=== PATIENT | male | born 1940 | race Caucasian/White ===

== ENCOUNTER 2018-05-12 18:53 | Emergency (ER) | payer BC, MEDICARE ==
--- NOTE | 2018-05-12 19:09 | EDM.PDOC ---
ED HPI GENERAL MEDICAL PROBLEM - General Chief Complaint: General Stated Complaint: DIZZY Time Seen by Provider: 05/12/18 19:03 - History of Present Illness INITIAL COMMENTS - FREE TEXT/NARRATIVE: 78-year-old male presents emergency room with lightheadedness and weakness. The patient has along go of it, he's recently had bouts of colitis pneumonia had several hospitalizations. He has a little lightheaded at times and a little unsteady on his feet. He has not had any episodes of localized weakness confusion or speech difficulties. He hasn't had any recent fevers or chills no nausea vomiting. On his last colonoscopy during his last hospitalization he had a few polypectomies and seems to be doing a little bit better after this, no more abdominal discomfort. He has not had any breathing difficulty shortness of breath or chest discomfort. Family is most concerned that he is not as steady on his feet as he used to be he has fallen a few times recently and he likes to spend time in his basement. He has been traveling quite a bit going back and forth with his also being ill and it does not sound like he is had the opportunity to get caught up on his rest. - Related Data Allergies Allergy/AdvReac Type Severity Reaction Status Date / Time Penicillins Allergy Cannot Verified 05/12/18 19:04 Remember Home Meds: Home Meds Aspirin 81 mg PO DAILY 05/12/18 [History] Budesonide [Entocort EC] 3 mg PO DAILY 05/12/18 [History] Calcium Carbonate/Vitamin D3 [Caltrate-600 with Vit D Tab] 1 each PO DAILY 05/12 [History] Cholecalciferol (Vitamin D3) [Vitamin D3] 1,000 unit PO DAILY 05/12/18 [History] Clorazepate Dipotassium [Tranxene T-Tab] 7.5 mg PO TID PRN 05/12/18 [History] Felodipine [Felodipine ER] 10 mg PO DAILY 05/12/18 [History] Gluc 2KCl/Chondr/[place] Hy/Hy Ac [Glucosamine & Chondroitin Cap] 1 each PO DAILY 05/12/18 [History] Levothyroxine 175 mcg PO ACBRK 05/12/18 [History] Lisinopril [Prinivil] 10 mg PO DAILY 05/12/18 [History] Omeprazole 40 mg PO DAILY 05/12/18 [History] PARoxetine [Paxil] 60 mg PO DAILY 05/12/18 [History] ED ROS GENERAL - Review of Systems Review Of Systems: See Below Constitutional: Reports: No Symptoms HEENT: Reports: No Symptoms Respiratory: Reports: No Symptoms Cardiovascular: Reports: No Symptoms Endocrine: Reports: No Symptoms GI/Abdominal: Reports: No Symptoms : Reports: No Symptoms Skin: Reports: No Symptoms Neurological: Reports: No Symptoms Psychiatric: Reports: No Symptoms Hematologic/Lymphatic: Reports: No Symptoms ED EXAM, GENERAL - Physical Exam Exam: See Below Exam Limited By: No Limitations General Appearance: Alert, No Apparent Distress Eye Exam: Bilateral Eye: Normal Inspection Ears: Normal External Exam, Normal Canal, Hearing Grossly Normal, Normal TMs Nose: Normal Inspection, Normal Mucosa, No Blood Throat/Mouth: Normal Inspection, Normal Lips, Normal Teeth, Normal Gums, Normal Oropharynx, Normal Voice, No Airway Compromise Head: Atraumatic, Normocephalic Neck: Normal Inspection, Supple, Non-Tender, Full Range of Motion Respiratory/Chest: No Respiratory Distress, Lungs Clear, Normal Breath Sounds, No Accessory Muscle Use, Chest Non-Tender Cardiovascular: Normal Peripheral Pulses GI/Abdominal: Normal Bowel Sounds, Soft, Non-Tender, No Organomegaly, No Distention, No Abnormal Bruit, No Mass Back Exam: Normal Inspection, Full Range of Motion, Other (Distracted straight leg raises are normal) Extremities: Normal Inspection, Normal Range of Motion, Non-Tender, Normal Capillary Refill, No Pedal Edema Neurological: Alert, Oriented, Normal Cognition Psychiatric: Normal Affect, Normal Mood Skin Exam: Warm, Dry, Intact Lymphatic: No Adenopathy EKG INTERPRETATION EKG Date: 05/12/18 Rhythm: NSR [place]: LAD-Left [place] Deviation P-Wave: Present ST-T: Normal QT: Normal Comparison: NA - No Prior EKG EKG Interpretation Comments: Leftward axis borderline Q's inferiorly abnormal EKG no acute changes Course - Vital Signs Last Recorded V/S: Last Vital Signs Temp 37.3 C 05/12/18 18:59 Pulse 98 05/12/18 18:59 Resp 22 H 05/12/18 18:59 BP 125/70 05/12/18 18:59 Pulse Ox 94 L 05/12/18 18:59 - Orders/Labs/Meds Orders: Active Orders 24 hr Category Date Time Status EKG Documentation Completion [RC] STAT Care 05/12/18 19:26 Active Chest 2V [CR] Stat Exams 05/12/18 19:26 Taken Labs: Laboratory Tests 05/12/18 05/12/18 05/12/18 Range/Units 20:04 20:04 20:04 WBC 6.29 (4.23-9.07) K/mm3 RBC 3.10 L (4.63-6.08) M/mm3 Hgb 9.6 L (13.7-17.5) gm/L Hct 30.6 L (40.1-51.0) % MCV 98.7 H (79.0-92.2) fl MCH 31.0 (25.7-32.2) pg MCHC 31.4 L (32.2-35.5) g/dl RDW Std Deviation 52.9 H (35.1-43.9) fL Plt Count 110 L (163-337) K/mm3 MPV 10.9 (9.4-12.3) fl Neutrophils % (Manual) 62 H (40-60) % Band Neutrophils % 0 (0-10) % Lymphocytes % (Manual) 30 (20-40) % Atypical Lymphs % 0 % Monocytes % (Manual) 7 (2-10) % Eosinophils % (Manual) 0 L (0.8-7.0) % Basophils % (Manual) 1 (0.2-1.2) Platelet Estimate Adequate Plt Morphology Comment Normal Hypochromasia 1+ slight Anisocytosis 1+ slight RBC Morph Comment Not Reportable Sodium 136 (136-145) mEq/L Potassium 3.9 (3.5-5.1) mEq/L Chloride 102 (98-107) mEq/L Carbon Dioxide 25 (21-32) mEq/L Anion Gap 12.9 (5-15) BUN 20 H (7-18) mg/dL Creatinine 1.2 (0.7-1.3) mg/dL Est Cr Clr Drug Dosing 51.55 mL/min Estimated GFR (MDRD) 59 (>60) mL/min BUN/Creatinine Ratio 16.7 (14-18) Glucose 90 (83-115) mg/dL Calcium 8.2 L (8.5-10.1) mg/dL Total Bilirubin 0.9 (0.2-1.0) mg/dL AST 32 (15-37) U/L ALT 38 (16-63) U/L Alkaline Phosphatase 90 (46-116) U/L Troponin I < 0.017 (0.00-0.056) ng/mL Total Protein 6.8 (6.4-8.2) g/dl Albumin 2.9 L (3.4-5.0) g/dl Globulin 3.9 gm/dL Albumin/Globulin Ratio 0.7 L (1-2) TSH 3rd Generation 3.128 (0.358-3.74) uIU/mL Urine Color (Yellow) Urine Appearance (Clear) Urine pH (5.0-8.0) Ur Specific [place] (1.005-1.030) Urine Protein (Negative) Urine Glucose (UA) (Negative) Urine Ketones (Negative) Urine Occult Blood (Negative) Urine Nitrite (Negative) Urine Bilirubin (Negative) Urine Urobilinogen (0.2-1.0) Ur Leukocyte Esterase (Negative) Urine RBC (0-5) /hpf Urine WBC (0-5) /hpf Ur Epithelial Cells (0-5) /hpf Urine Bacteria (FEW) /hpf Urine Mucus (FEW) /hpf /07/22 Range/Units 20:20 WBC (4.23-9.07) K/mm3 RBC (4.63-6.08) M/mm3 Hgb (13.7-17.5) gm/L Hct (40.1-51.0) % MCV (79.0-92.2) fl MCH (25.7-32.2) pg MCHC (32.2-35.5) g/dl RDW Std Deviation (35.1-43.9) fL Plt Count (163-337) K/mm3 MPV (9.4-12.3) fl Neutrophils % (Manual) (40-60) % Band Neutrophils % (0-10) % Lymphocytes % (Manual) (20-40) % Atypical Lymphs % % Monocytes % (Manual) (2-10) % Eosinophils % (Manual) (0.8-7.0) % Basophils % (Manual) (0.2-1.2) Platelet Estimate Plt Morphology Comment Hypochromasia Anisocytosis RBC Morph Comment Sodium (136-145) mEq/L Potassium (3.5-5.1) mEq/L Chloride (98-107) mEq/L Carbon Dioxide (21-32) mEq/L Anion Gap (5-15) BUN (7-18) mg/dL Creatinine (0.7-1.3) mg/dL Est Cr Clr Drug Dosing mL/min Estimated GFR (MDRD) (>60) mL/min BUN/Creatinine Ratio (14-18) Glucose (83-115) mg/dL Calcium (8.5-10.1) mg/dL Total Bilirubin (0.2-1.0) mg/dL AST (15-37) U/L ALT (16-63) U/L Alkaline Phosphatase (46-116) U/L Troponin I (0.00-0.056) ng/mL Total Protein (6.4-8.2) g/dl Albumin (3.4-5.0) g/dl Globulin gm/dL Albumin/Globulin Ratio (1-2) TSH 3rd Generation (0.358-3.74) uIU/mL Urine Color Yellow (Yellow) Urine Appearance Clear (Clear) Urine pH 7.0 (5.0-8.0) Ur Specific [place] 1.020 (1.005-1.030) Urine Protein 1+ H (Negative) Urine Glucose (UA) Negative (Negative) Urine Ketones Negative (Negative) Urine Occult Blood Negative (Negative) Urine Nitrite Negative (Negative) Urine Bilirubin Negative (Negative) Urine Urobilinogen 4.0 H (0.2-1.0) Ur Leukocyte Esterase Negative (Negative) Urine RBC Not seen (0-5) /hpf Urine WBC 0-5 (0-5) /hpf Ur Epithelial Cells 0-5 (0-5) /hpf Urine Bacteria Rare (FEW) /hpf Urine Mucus Not seen (FEW) /hpf - Re-Assessments/Exams Free Text/Narrative Re-Assessment/Exam: 05/12/18 23:10 The cause of his dizziness is a little unclear he has a significant anemia certainly not to the point that requires transfusion with further discussion he uses Tranxene on a when necessary basis sometimes fairly heavily this is a medication with a very long half-life and can accumulate quite rapidly and over the long-term in his system if used on a regular basis I believe this medication is frowned upon by the beers criteria and could be contributing to his system at his age he can accumulate it at a much faster pace then somebody younger could. He will follow-up with his regular provider discuss continued use the Tranxene and his anemia that needs to be addressed Departure - Departure Time of Disposition: 23:12 Disposition: Home, Self-Care 01 Clinical Impression: Dizziness, nonspecific, Anemia, senior living prescription benzodiazepine use - Discharge Information Referrals: Ricki Johnson MD [Primary Care Provider] - Forms: ED Department Discharge Additional Instructions: Return to the emergency room with any questions problems worsening symptoms. Follow-up with your regular doctor as soon as you can discuss workup for the anemia and discuss treatment for anxiety and potential harm if using the Tranxene. - My Orders Last 24 Hours: My Active Orders 05/12/18 19:26 EKG Documentation Completion [RC] STAT Chest 2V [CR] Stat - Assessment/Plan Last 24 Hours: My Active Orders 05/12/18 19:26 EKG Documentation Completion [RC] STAT Chest 2V [CR] Stat
--- NOTE | 2018-05-13 08:18 | CR ---
Chest: Two views of the chest were obtained. Comparison: No prior chest x-ray. Heart has a slight left ventricular configuration. Mild tortuosity of the thoracic aorta is seen. Lungs are clear without acute parenchymal change. Degenerative spurring is noted within the spine with scattered disc space narrowing. Several right-sided rib fractures are seen showing callus. Impression: 1. Incidental findings. Nothing acute is seen. Diagnostic code #2
== END 2018-05-12 23:20 | disposition home or self-care (01) ==
LOC: JD.ED 18:53
DX: R42 Dizziness and giddiness (principal); F19.90 Other psychoactive substance use, unspecified, uncomplicated; D64.9 Anemia, unspecified; Z88.0 Allergy status to penicillin; Z79.82 Long term (current) use of aspirin; Z79.899 Other long term (current) drug therapy
CPT/HCPCS: 36415; 71046; 71046-26; 80053; 81001; 84443; 84484; 85007; 85027; 93005; 99284-25

== ENCOUNTER 2018-12-12 16:01 | Emergency (ER) | payer MEDICARE, OTHER ==
--- NOTE | 2018-12-12 16:33 | EDM.PDOC ---
ED HPI GENERAL MEDICAL PROBLEM - General Chief Complaint: Back Pain or Injury Stated Complaint: SEVERE BACK PAIN Time Seen by Provider: 12/12/18 16:33 Source of Information: Reports: Patient, Family (spouse) History Limitations: Reports: No Limitations - History of Present Illness INITIAL COMMENTS - FREE TEXT/NARRATIVE: 78-year-old male brought to the ED by his after being discharged from [facility] earlier this morning. Patient slipped and fell at home over a week ago and was seen initially at [facility] and then was transferred to [facility] for care. Patient has remained in the hospital for over a week due to a compression fracture in his lower lumbar spine. His pain management is his chief complaint. He was advised to take Tylenol and a lidocaine patch was applied over the sore area in his back for transport home. Patient is in so much pain at this time that he cannot walk so he can't look after himself and his is not able to care for him at home. Patient has chronic thrombocytopenia and anemia and hemoglobin apparently was low at 7.7 yesterday and he did receive 1 unit of blood. Otherwise he was going to be discharged home yesterday morning but the weather was too bad to allow discharge. It's unclear why he has not had an MRI of his back or operating of a kyphoplasty. Apparently he did hit his head when he fell initially and CT head was done in the emergency room in [place] and was negative for intracranial bleed. The and the patient are both severely frustrated by the fact that they could not get an MRI done and pursue kyphoplasty to help with his severe pain. He has no radicular pain in either extremity. He can get on and off the toilet with assistance only. All function has been normal without constipation. He does have urinary frequency with nocturia 2 due to enlarged prostate gland. He denies any nausea but the pain is 10 out of 10 at present. States the lidocaine patch has not helped at all. Patient was retrieved from their vehicle by nursing staff with a wheelchair as he is unable to walk due to pain. Onset: Sudden Onset Date: 12/03/18 (Patient was feeling weak and dizzy on the day that he fell. He had a fainting type spell and did hit his head) Duration: Day(s):, Constant, Getting Worse Location: Reports: Back (Diffuse severe low back pain due to compression fracture secondary to a fall 9 days ago) Quality: Reports: Ache Severity: Severe (10 out of 10) Improves with: Reports: Rest Worsens with: Reports: Movement (Even trying to rollover bed by himself is almost impossible) Context: Reports: Trauma (Slipped on the ice and fell almost on his left side and back.). Denies: Activity, Exercise, Lifting, Sick Contact Associated Symptoms: Reports: Loss of Appetite, Malaise, Weakness. 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, Other (see below) (Lidocaine patch applied to his lower back today) Lower Back Pain Score (Numeric/FACES): 9 - Related Data Allergies Allergy/AdvReac Type Severity Reaction Status Date / Time Penicillins Allergy Cannot Verified 12/12/18 18:19 Remember Home Meds: Home Meds Budesonide [Entocort EC] 9 mg PO DAILY 05/12/18 [History] Calcium Carbonate/Vitamin D3 [Caltrate-600 with Vit D Tab] 1 each PO DAILY 05/12 [History] Cholecalciferol (Vitamin D3) [Vitamin D3] 1,000 unit PO DAILY 05/12/18 [History] Clorazepate Dipotassium [Tranxene T-Tab] 7.5 mg PO TID PRN 05/12/18 [History] Felodipine [Felodipine ER] 10 mg PO DAILY 05/12/18 [History] Gluc 2KCl/Chondr/Kelby Hy/Hy Ac [Glucosamine & Chondroitin Cap] 1 each PO DAILY 05/12/18 [History] Levothyroxine 175 mcg PO ACBRK 05/12/18 [History] Omeprazole 20 mg PO DAILY 05/12/18 [History] Ferrous Sulfate 325 mg PO DAILY 12/12/18 [History] Lidocaine 5% [Lidoderm 5%] 1 patch TOP Q24H 12/12/18 [History] Tamsulosin [Flomax] 0.4 mg PO BEDTIME 12/12/18 [History] Vitamin B6-pyridOXINE 100 mg PO DAILY 02/08/19 [History] Past Medical History HEENT History: Reports: Allergic Rhinitis, Hard of Hearing, Impaired Vision Cardiovascular History: Reports: Hypertension, [place], SOB on Exertion, Other (See Below) (Carotid artery stenosis.) Respiratory History: Reports: COPD, Sleep Apnea (Does wear CPAP at nighttime.), Other (See Below) (Has restrictively young lung disease component.) Gastrointestinal History: Reports: GERD Other Gastrointestinal History: inconclusive for crohns disease Genitourinary History: Reports: Other (See Below) Other Genitourinary History: prostatalgia Musculoskeletal History: Reports: Arthritis, Osteoarthritis (Knees hips lower back and neck.), Other (See Below) Other Musculoskeletal History: compressed lower disc. 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 Not clear whether this is gout or not. 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 Has had then inferior once and required numerous units of packed cells. 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 He's been labeled as having chronic systemic inflammatory reaction. The cause of bone marrow suppression is usually connective tissue disorder or chronic inflammatory process versus is infectious etiology that is chronic such as Shaq-Wiley virus HIV, hepatitis B etc. Medications are also on the list of potential culprits. Dictated cause chronic thrombocytopenia), Other (See Below) Other Hematologic History: low hemoglobin and platelets--has been investigated by Dr. Spence nut grader in [place] and in fact has had a bone marrow biopsy with no positive findings. Therefore the suggestion is whether or not he has a chronic infectious process causing bone marrow suppression versus medication causing bone marrow suppression. Many of his medications were recently discontinued in the believe that one of them may be causing bone marrow suppression and chronic thrombocytopenia and anemia. Oncologic (Cancer) History: Reports: Other (See Below) (Basal cell skin cancer left ear. Squamous cell carcinoma removed left forearm) - Past Surgical History Cardiovascular Surgical History: Reports: Carotid Endarterectomy, Coronary Artery Stent, Percutaneous Transluminal Angioplasty, Other (See Below) ( Previous pericardiocentesis with removal of 350 mils of blood.) GI Surgical History: Reports: Colonoscopy (With polypectomies. With biopsies.) Musculoskeletal Surgical History: Reports: Other (See Below) (Acquired multiple facial fracture repairs after accident.) Social & Family History - Family History Family Medical History: Noncontributory - Tobacco Use Smoking Status *Q: Former Smoker Used Tobacco, but Quit: Yes Month/Year Tobacco Last Used: 40 yrs - Caffeine Use Caffeine Use: Reports: Coffee, Soda - Recreational Drug Use Recreational Drug Use: No - Living Situation & Occupation Living situation: Reports: Occupation: Retired ED ROS GENERAL - Review of Systems Review Of Systems: See Below Constitutional: Reports: Malaise, Weakness, Fatigue, Decreased Appetite, Weight Loss. Denies: Fever, Chills HEENT: Reports: Glasses Respiratory: Reports: Shortness of Breath (On exertion). Denies: Wheezing, Pleuritic Chest Pain, Cough, Sputum, Hemoptysis Cardiovascular: Reports: Blood Pressure Problem, Dyspnea on Exertion. Denies: Chest Pain, Claudication (Mildly elevated but lisinopril was recently discontinued.), Edema, Lightheadedness, Orthopnea, Palpitations Endocrine: Reports: Fatigue GI/Abdominal: Reports: Decreased Appetite. Denies: Abdominal Pain, Constipation , Diarrhea, Nausea, Vomiting : Reports: Frequency, Other (Has enlarged prostate.) Musculoskeletal: Reports: Back Pain ( Trigger usually 2-3 times nightly severe low back pain since fall 9 days ago with confirmed compression fracture unsure which level. Records are being obtained ) Skin: Reports: No Symptoms Neurological: Reports: No Symptoms Psychiatric: Reports: No Symptoms Hematologic/Lymphatic: Reports: Anemia, Easy Bleeding, Easy Bruising, Other Immunologic: Reports: No Symptoms ED EXAM,LOWER BACK PAIN/INJURY - Physical Exam Exam: See Below Exam Limited By: No Limitations General Appearance: Alert, Moderate Distress (He is in obvious pain or distress. He is mildly palate in color.), Other (Resting heart rate is 126/m either due to pain and/or volume depletion. O2 sats 91% on room air. BP is mildly elevated at 149/69.) Eye Exam: Bilateral Eye: PERRL, Other (Mild bilateral pallor appreciated.) Throat/Mouth: Normal Inspection, Normal Lips, Normal Teeth, Normal Oropharynx, Other Head: Atraumatic (Tongue is moist), Normocephalic Neck: Normal Inspection, Supple, Non-Tender, Full Range of Motion. No: Lymphadenopathy (L), Lymphadenopathy (R) Respiratory/Chest: Respiratory Distress, Decreased Breath Sounds, Rales (Mild tachypnea at rest 21/m. Few fine rales appreciated at both lung bases.). No: Lungs Clear Cardiovascular: Normal Peripheral Pulses, No Gallop, No Murmur, No Rub, Tachycardia (Resting tachycardia of 1 29/m). No: No Edema GI/Abdominal: Normal Bowel Sounds, Non-Tender, No Organomegaly, No Abnormal Bruit, No Mass, Pelvis Stable, Other (He has a large scar compatible with open cholecystectomy and appendectomy done at the same time on the right hemiabdomen) Back Exam: Vertebral Tenderness (Severe pain coming from his lower back appears to be lumbar to lower lumbar 3 level but is difficult to ascertain which level is the Right.), Other Extremities: Normal Inspection, Normal Range of Motion, Non-Tender, Pedal Edema Neurological: Alert (He has 1+ pitting edema both lower extremities at the ankles and dorsal feet), Normal Dorsiflexion, CN II-XII Intact, No Motor/ Sensory Deficits, Oriented x 3. No: Normal Gait DTR - Lower Extremities: 1+: Knee (R), Knee (L), Ankle (R), Ankle (L) Psychiatric: Other Skin Exam: Warm, Dry (In a great deal of pain), Intact, Normal Color, Pallor ( Mild pallor) EKG INTERPRETATION EKG Date: 12/12/18 Time: 17:08 Rhythm: Other Rate (Beats/Min): 127 [place]: Normal P-Wave: Present QRS: Other (There are Q waves in V3 to V6 compatible with an old anterior lateral myocardial infarction. There are Q waves in II, III, and F aVF compatible with an old inferior wall myocardial infarction.) ST-T: Normal QT: Normal EKG Interpretation Comments: Abnormal ECG Course - Vital Signs Last Recorded V/S: Last Vital Signs Temp 37.9 C 12/12/18 19:20 Pulse 129 H 12/12/18 16:17 Resp 21 H 12/12/18 16:17 BP 149/69 H 12/12/18 16:17 Pulse Ox 92 L 12/12/18 16:17 - Orders/Labs/Meds Orders: Active Orders 24 hr Category Date Time Status EKG Documentation Completion [RC] STAT Care 12/12/18 16:51 Active Chest 1V Frontal [CR] Stat Exams 12/12/18 17:02 Taken CULTURE BLOOD [BC] Stat Lab 12/12/18 19:37 Received CULTURE BLOOD [BC] Stat Lab 12/12/18 19:48 Received PATIENT RETYPE [BBK] Routine Lab 12/12/18 19:27 Ordered Sodium Chloride 0.9% [Normal Saline] 1,000 ml Med 12/12/18 17:00 Active IV ASDIRECTED Blood Culture x2 Reflex Set [OM.PC] Stat Oth 12/12/18 19:15 Ordered Medication Orders Sodium Chloride (Normal Saline) 1,000 mls @ 200 mls/hr IV ASDIRECTED DINA Last Admin: 12/12/18 17:20 Dose: 200 mls/hr Labs: Laboratory Tests 12/12/18 12/12/18 12/12/18 Range/Units 17:15 17:15 17:15 WBC 9.36 H (4.23-9.07) K/mm3 RBC 3.00 L (4.63-6.08) M/mm3 Hgb 9.5 L (13.7-17.5) gm/L Hct 30.5 L (40.1-51.0) % MCV 101.7 H (79.0-92.2) fl MCH 31.7 (25.7-32.2) pg MCHC 31.1 L (32.2-35.5) g/dl RDW Std Deviation 60.1 H (35.1-43.9) fL Plt Count 79 L (163-337) K/mm3 MPV 11.7 (9.4-12.3) fl Neutrophils % (Manual) 85 H (40-60) % Band Neutrophils % 2 (0-10) % Lymphocytes % (Manual) 10 L (20-40) % Atypical Lymphs % 0 % Monocytes % (Manual) 3 (2-10) % Eosinophils % (Manual) 0 L (0.8-7.0) % Basophils % (Manual) 0 L (0.2-1.2) Platelet Estimate Decreased Plt Morphology Comment See note Anisocytosis 1+ slight Macrocytosis 1+ slight Ovalocytes 1+ slight RBC Morph Comment Not Reportable ESR (0-15) mm/hr PT 12.1 (9.5-12.1) SECONDS INR 1.11 APTT 35 H (24-31) SECONDS Sodium 139 (136-145) mEq/L Potassium 3.8 (3.5-5.1) mEq/L Chloride 104 (98-107) mEq/L Carbon Dioxide 25 (21-32) mEq/L Anion Gap 13.8 (5-15) BUN 24 H (7-18) mg/dL Creatinine 1.3 (0.7-1.3) mg/dL Est Cr Clr Drug Dosing 46.04 mL/min Estimated GFR (MDRD) 54 (>60) mL/min BUN/Creatinine Ratio 18.5 H (14-18) Glucose 103 (83-115) mg/dL Calcium 9.1 (8.5-10.1) mg/dL Magnesium 1.9 (1.8-2.4) mg/dl Total Bilirubin 0.7 (0.2-1.0) mg/dL AST 50 H (15-37) U/L ALT 56 (16-63) U/L Alkaline Phosphatase 104 (46-116) U/L C-Reactive Protein 11.8 H* (<1.0) mg/dL NT-Pro-B Natriuret Pep (0-450) pg/mL Total Protein 7.3 (6.4-8.2) g/dl Albumin 2.9 L (3.4-5.0) g/dl Globulin 4.4 gm/dL Albumin/Globulin Ratio 0.7 L (1-2) Urine Color (Yellow) Urine Appearance (Clear) Urine pH (5.0-8.0) Ur Specific Duncan (1.005-1.030) Urine Protein (Negative) Urine Glucose (UA) (Negative) Urine Ketones (Negative) Urine Occult Blood (Negative) Urine Nitrite (Negative) Urine Bilirubin (Negative) Urine Urobilinogen (0.2-1.0) Ur Leukocyte Esterase (Negative) Urine RBC (0-5) /hpf Urine WBC (0-5) /hpf Ur Epithelial Cells (0-5) /hpf Urine Bacteria (FEW) /hpf Urine Mucus (FEW) /hpf Blood Type Gel Antibody Screen 12/12/18 12/12/18 12/12/18 Range/Units 17:15 17:15 17:15 WBC (4.23-9.07) K/mm3 RBC (4.63-6.08) M/mm3 Hgb (13.7-17.5) gm/L Hct (40.1-51.0) % MCV (79.0-92.2) fl MCH (25.7-32.2) pg MCHC (32.2-35.5) g/dl RDW Std Deviation (35.1-43.9) fL Plt Count (163-337) K/mm3 MPV (9.4-12.3) fl Neutrophils % (Manual) (40-60) % Band Neutrophils % (0-10) % Lymphocytes % (Manual) (20-40) % Atypical Lymphs % % Monocytes % (Manual) (2-10) % Eosinophils % (Manual) (0.8-7.0) % Basophils % (Manual) (0.2-1.2) Platelet Estimate Plt Morphology Comment Anisocytosis Macrocytosis Ovalocytes RBC Morph Comment ESR 104 H (0-15) mm/hr PT (9.5-12.1) SECONDS INR APTT (24-31) SECONDS Sodium (136-145) mEq/L Potassium (3.5-5.1) mEq/L Chloride (98-107) mEq/L Carbon Dioxide (21-32) mEq/L Anion Gap (5-15) BUN (7-18) mg/dL Creatinine (0.7-1.3) mg/dL Est Cr Clr Drug Dosing mL/min Estimated GFR (MDRD) (>60) mL/min BUN/Creatinine Ratio (14-18) Glucose (83-115) mg/dL Calcium (8.5-10.1) mg/dL Magnesium (1.8-2.4) mg/dl Total Bilirubin (0.2-1.0) mg/dL AST (15-37) U/L ALT (16-63) U/L Alkaline Phosphatase (46-116) U/L C-Reactive Protein (<1.0) mg/dL NT-Pro-B Natriuret Pep 302 (0-450) pg/mL Total Protein (6.4-8.2) g/dl Albumin (3.4-5.0) g/dl Globulin gm/dL Albumin/Globulin Ratio (1-2) Urine Color (Yellow) Urine Appearance (Clear) Urine pH (5.0-8.0) Ur Specific Duncan (1.005-1.030) Urine Protein (Negative) Urine Glucose (UA) (Negative) Urine Ketones (Negative) Urine Occult Blood (Negative) Urine Nitrite (Negative) Urine Bilirubin (Negative) Urine Urobilinogen (0.2-1.0) Ur Leukocyte Esterase (Negative) Urine RBC (0-5) /hpf Urine WBC (0-5) /hpf Ur Epithelial Cells (0-5) /hpf Urine Bacteria (FEW) /hpf Urine Mucus (FEW) /hpf Blood Type A POSITIVE Gel Antibody Screen Negative 12/12/18 Range/Units 18:30 WBC (4.23-9.07) K/mm3 RBC (4.63-6.08) M/mm3 Hgb (13.7-17.5) gm/L Hct (40.1-51.0) % MCV (79.0-92.2) fl MCH (25.7-32.2) pg MCHC (32.2-35.5) g/dl RDW Std Deviation (35.1-43.9) fL Plt Count (163-337) K/mm3 MPV (9.4-12.3) fl Neutrophils % (Manual) (40-60) % Band Neutrophils % (0-10) % Lymphocytes % (Manual) (20-40) % Atypical Lymphs % % Monocytes % (Manual) (2-10) % Eosinophils % (Manual) (0.8-7.0) % Basophils % (Manual) (0.2-1.2) Platelet Estimate Plt Morphology Comment Anisocytosis Macrocytosis Ovalocytes RBC Morph Comment ESR (0-15) mm/hr PT (9.5-12.1) SECONDS INR APTT (24-31) SECONDS Sodium (136-145) mEq/L Potassium (3.5-5.1) mEq/L Chloride (98-107) mEq/L Carbon Dioxide (21-32) mEq/L Anion Gap (5-15) BUN (7-18) mg/dL Creatinine (0.7-1.3) mg/dL Est Cr Clr Drug Dosing mL/min Estimated GFR (MDRD) (>60) mL/min BUN/Creatinine Ratio (14-18) Glucose (83-115) mg/dL Calcium (8.5-10.1) mg/dL Magnesium (1.8-2.4) mg/dl Total Bilirubin (0.2-1.0) mg/dL AST (15-37) U/L ALT (16-63) U/L Alkaline Phosphatase (46-116) U/L C-Reactive Protein (<1.0) mg/dL NT-Pro-B Natriuret Pep (0-450) pg/mL Total Protein (6.4-8.2) g/dl Albumin (3.4-5.0) g/dl Globulin gm/dL Albumin/Globulin Ratio (1-2) Urine Color Yellow (Yellow) Urine Appearance Clear (Clear) Urine pH 7.0 (5.0-8.0) Ur Specific Duncan 1.015 (1.005-1.030) Urine Protein 1+ H (Negative) Urine Glucose (UA) Negative (Negative) Urine Ketones Negative (Negative) Urine Occult Blood 1+ H (Negative) Urine Nitrite Negative (Negative) Urine Bilirubin Negative (Negative) Urine Urobilinogen 0.2 (0.2-1.0) Ur Leukocyte Esterase Negative (Negative) Urine RBC 0-5 (0-5) /hpf Urine WBC 0-5 (0-5) /hpf Ur Epithelial Cells 0-5 (0-5) /hpf Urine Bacteria Occasional (FEW) /hpf Urine Mucus Not seen (FEW) /hpf Blood Type Gel Antibody Screen Meds: Medications Generic Name Dose Route Start Last Admin Trade Name Freq PRN Reason Stop Dose Admin Sodium Chloride 1,000 mls @ 200 mls/hr 12/12/18 17:00 12/12/18 17:20 Normal Saline IV 200 mls/hr ASDIRECTED DINA Administration Discontinued Medications Generic Name Dose Route Start Last Admin Trade Name Freq PRN Reason Stop Dose Admin Acetaminophen 975 mg 12/12/18 19:15 12/12/18 19:20 Tylenol PO 12/12/18 19:16 975 mg NOW ONE Administration Hydromorphone HCl 1 mg 12/12/18 16:50 12/12/18 17:22 Dilaudid IVPUSH 12/12/18 16:51 1 mg ONETIME ONE Administration Ondansetron HCl 4 mg 12/12/18 16:51 12/12/18 17:20 Zofran IVPUSH 12/12/18 16:52 4 mg ONETIME ONE Administration - Radiology Interpretation Free Text/Narrative:: 78-year-old male presents the ED at the request of his . There were discharged from [facility] this afternoon from [place] where they have been for the last week. Y slipped and fell at home outside of [place] 9 days ago landing hard on his left side and injuring his lower back by history is a suffered a severe compression fracture. Been for the most part bedridden with suboptimal pain control. He was given a lidocaine patch over his lower back and tailbone told to take Tylenol for pain. Patient's pain is currently 10 out of 10 with had to go and get him out of the vehicle as he is unable to walk on his own even with the interval walker. 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 He has had a bone marrow biopsy which was reportedly normal. 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 No infectious or chronic infectious disease process has ever been identified to be causing his thrombocytopenia and chronic anemia. He did receive a unit of blood yesterday at the request of his because his hemoglobin was 7.7 on examination he is pallid he is in great deal of pain. Written ecchymoses all extremities. Last platelet count was around 64,000. Apparently his hemoglobin was 7.7 yesterday and he did receive a unit of packed cells. He is here primarily for pain management and to be admitted to the hospital since his can't care for him at home and he certainly can't care for himself in any fashion or form. It's unclear are not Y he has not received an MRI of his lower back to identify the level of injury and whether or not he would benefit from a kyphoplasty. I'm not sure if the surgery is felt to be too high risk due to his low platelets and anemia. We will pursue notes from [facility] toll- free shed further light on his current problems. In the meantime an IV will be started and he will receive normal saline at 150 mils per hour. Given Dilaudid 1 mg IV with Zofran 4 mg IV for pain and nausea relief. Routine labs will be collected in one view chest x-ray and ECG to be done. - Re-Assessments/Exams Free Text/Narrative Re-Assessment/Exam: 12/12/18 18:29 White count is 9.36 with 85% neutrophils and 2% bands. Hemoglobin is 9.5 with a hematocrit of 30.5. MCV is elevated at 101.7. Platelet count is 79,000. The slide shows 1+ anisocytosis cytosis and 1+ macrocytosis and 1+ ovalocytes. PT is 12.1 with an INR of 1.11. PTT is 35 sodium 139 with potassium of 3.8. Chloride is 104 bicarbonate 25.. Anion gap is 13.8 with a BUN of 24. Creatinine is 1.3. GFR is 54. BUN/creatinine ratio is 18.5 minimally elevated glucose 103. Calcium 9.1. Magnesium 1.9. Bilirubin is 0.7. AST is minimally elevated at 50 ALT is 56. Alk phosphatase is 104. C-reactive protein is elevated at 11.8. BNP is 302. Total protein is 7.3 with an albumin fraction of only 2.9. Chest x-ray done portably reveals a somewhat bulbous heart that might be just mildly enlarged. There is no pulmonary infiltrates and costophrenic angles are clear. 12/12/18 18:44 after looking through all the notes that have arrived from [facility] well over 200 pages on page 200 identified that they did do an x-ray of his lumbar spine is suggested a compression fracture of the superior endplate of lumbar 1. Intake we could not be clarified. A CT of the abdomen and pelvis and chest was performed to look for occult malignancy found. This is on page 207. CT identified a compression fracture of lumbar one but felt that it was old versus new. His pain however is well localized to this area suggesting that he has a new fracture. MRI will be the only way to define for sure the level of fracture and its antiquity. Patient has had multiple investigations from a connective tissue disorder point of view as well as infectious gastroenterology point of view to try to identify a chronic infective process that would be responsible for his bone marrow suppression and none was found. Therefore one has to look very carefully at his medications as a potential cause. He obviously has a chronic iron deficiency anemia which may well be from bowel absorption. However this does not explain the chronic thrombocytopenia. Thrombocytopenia may be a barrier to having a compression fracture kyphoplasty performed in the future. I have ordered a CT of his lumbar spine to help clarify the level of injury at this time. Apparently they are looking and Tranxene as a potential medication that may be causing bone marrow suppression. Apparently he's been on this medication for 25 years. 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 Therefore the potential cause of his bone marrow abnormalities are multiple. With this sedimentation rate of 104 it strongly suggests there is a chronic inflammatory/infectious process causing bone marrow suppression 12/12/18 19:16 I did speak with the family once again. On my examination the patient he has spiked a fever he is a very warm to palpation I will have the nurses recheck his temperature. I've ordered blood cultures 2 and Tylenol 975 mg by mouth for fever relief. He has passed his urine and apparently samples been sent for analysis he did not have any catheterization while he was in [place]. I spoken with on-call hospice Dr. Comer and she will visit with him in the room and identify expectations and the limited abilities of our hospital. I did order a influenza screen on this patient. 12/12/18 20:15: After discussion with the family decision made to send him back to [place] unfortunately. Family adamantly refuses going back to [facility] for care. I therefore did discuss care with 1 call nurse at [facility] in [place] and Dr. Ruelas--senior interaction designer hospitalist who was gracious enough to accept care of this patient. 2 major problems are an acute fracture of his lumbar 1 vertebra causing terrible uncontrolled pain. #2 problem is acute onset of febrile illness of unclear origin. Urinalysis here is clear and chest x-ray is normal. Third problem is chronic bone marrow suppression with chronic thrombocytopenia and anemia. The cause of this remains elusive. The will stay in [facility] and plan on traveling to [place] tomorrow. Completely worn out and she needs new clothing and has to go down to the [facility] to obtain close for both herself and her . Daughter is here at this time to also help. Departure - Departure Time of Disposition: 20:36 Disposition: DC/Tfer to Acute Hospital 02 Condition: Poor Clinical Impression: Acute febrile illness, Fever of unknown origin, Chronic iron deficiency anemia , Chronic idiopathic thrombocytopenia Compression fracture of first lumbar vertebra Qualifiers: Encounter type: initial encounter Fracture type: closed Qualified Code(s): S32.010A - Wedge compression fracture of first lumbar vertebra, initial encounter for closed fracture - Discharge Information *PRESCRIPTION DRUG MONITORING PROGRAM REVIEWED*: Not Applicable *COPY OF PRESCRIPTION DRUG MONITORING REPORT IN PATIENT GERMAINE: Not Applicable Referrals: Ricki Johnson MD [Primary Care Provider] - Forms: ED Department Discharge - My Orders Last 24 Hours: My Active Orders 12/12/18 16:51 EKG Documentation Completion [RC] STAT 12/12/18 17:00 Sodium Chloride 0.9% [Normal Saline] 1,000 ml IV ASDIRECTED 12/12/18 17:02 Chest 1V Frontal [CR] Stat 12/12/18 19:15 Blood Culture x2 Reflex Set [OM.PC] Stat 12/12/18 19:27 PATIENT RETYPE [BBK] Routine 12/12/18 19:37 CULTURE BLOOD [BC] Stat 12/12/18 19:48 CULTURE BLOOD [BC] Stat - Assessment/Plan Last 24 Hours: My Active Orders 12/12/18 16:51 EKG Documentation Completion [RC] STAT 12/12/18 17:00 Sodium Chloride 0.9% [Normal Saline] 1,000 ml IV ASDIRECTED 12/12/18 17:02 Chest 1V Frontal [CR] Stat 12/12/18 19:15 Blood Culture x2 Reflex Set [OM.PC] Stat 12/12/18 19:27 PATIENT RETYPE [BBK] Routine 12/12/18 19:37 CULTURE BLOOD [BC] Stat 12/12/18 19:48 CULTURE BLOOD [BC] Stat
[2018-12-12] MEDS ORDERED: HYDROmorphone 1 MG/ML Syringe IVPUSH ONE ×2 (16:50→20:28)
[2018-12-12] MEDS ORDERED: Ondansetron 4 MG/2 ML SDV IVPUSH ONE (16:51)
[2018-12-12] MEDS ORDERED: Sodium Chloride 0.9% 1,000 ML IV SCH (17:00)
[2018-12-12] MEDS ORDERED: Acetaminophen 325 MG Tab PO ONE (19:15)
--- NOTE | 2018-12-12 19:21 | CT ---
CT lumbar spine Technique: Multiple axial sections were obtained from the top of T12 inferiorly through the L5-S1 disc. Reconstructed sagittal and coronal images were reviewed. Comparison: No prior lumbar spine imaging is available. Findings: T11-T12: Posterior disc is preserved. No central canal stenosis or neural foraminal stenosis is seen. T12-L1: Vacuum disc phenomena is seen. Posterior disc space narrowing is seen. Posterior disc maintains a concave margin. Moderate degenerative apophyseal change is noted. No central canal stenosis or neural foraminal stenosis is seen. Minimal endplate concavity is noted of L1 with what appears to be an acute fracture line of the anterior and superior endplate. L1-L2: Posterior disc space narrowing is seen. Slight circumferential disc bulge is noted. Posterior disc maintains a concave margin. No central canal stenosis is seen. Neural foramina are patent. Mild degenerative apophyseal change is seen. Schmorl node deformity is seen within the inferior endplate of L1. L2-L3: Severe disc space narrowing is noted with vacuum disc phenomena. Mild circumferential disc bulge is seen. Posterior disc maintains a mostly planar margin. Mild central canal stenosis is noted. Neural foramina are patent where the nerve roots exit. Mild degenerative apophyseal change is seen. L3-L4: Mild disc space narrowing is seen. Circumferential disc bulge is noted. Mild degenerative apophyseal change is noted. Mild central canal stenosis is seen. Neural foramina are patent where the nerve roots exit. L4-L5: Mild disc space narrowing is seen. Slight circumferential disc bulge is noted. Moderate degenerative apophyseal change is seen. Minimal central canal stenosis is noted. Neural foramina are patent where the nerve roots exit. L5-S1: Mild diffuse posterior disc bulge is seen. Neural foramina appear patent where the nerve roots exit. No central canal stenosis is seen. Fragmentation is noted of the apophyseal joint of L5 on the right side believed to be old and degenerative. Atherosclerotic change is noted within the nondilated abdominal aorta. Sacroiliac joints show slight degenerative change. Bony structures are osteopenic. Impression: 1. Slight endplate concavity of L1 is seen superiorly. This is believed to be acute as there is small fracture line noted involving the anterior and superior endplate. 2. Degenerative change as noted above. Mild areas of central canal stenosis are seen. 3. No other possible acute abnormality is appreciated. Diagnostic code #3
--- NOTE | 2018-12-13 11:34 | CR ---
Chest: Portable view of the chest was obtained. Comparison: Previous chest x-ray of 05/12/18. Heart is slightly enlarged. Tortuous thoracic aorta seen. Lungs are clear. Bony structures are grossly intact. Impression: 1. Slightly enlarged heart. 2. Nothing acute is appreciated on portable chest x-ray. Diagnostic code #2
== END 2018-12-12 20:45 ==
LOC: JD.ED 16:01 → SUPCPDRO 16:01 → JD.ED 20:45
DX: S32.010A Wedge compression fracture of first lumbar vertebra, initial encounter for closed fracture (principal); D69.3 Immune thrombocytopenic purpura; R50.9 Fever, unspecified; D50.0 Iron deficiency anemia secondary to blood loss (chronic); M54.5 Low back pain; J44.9 Chronic obstructive pulmonary disease, unspecified; I10 Essential (primary) hypertension; Z88.0 Allergy status to penicillin; Z79.899 Other long term (current) drug therapy; Z87.891 Personal history of nicotine dependence; W01.0XXA Fall on same level from slipping, tripping and stumbling without subsequent striking against object, initial encounter
CPT/HCPCS: 36415; 71045; 72131; 80053; 81001; 83735; 83880; 85007; 85027; 85610; 85652; 85730; 86140; 86850; 86900; 86901; 87040; 87804; 93005; 96361; 96374; 96375; 96376; 99285; A9270; J1170; J2405; J7040; 93010

== ENCOUNTER 2019-07-23 12:47 | Emergency (ER) | payer MEDICARE, OTHER ==
--- NOTE | 2019-07-23 14:24 | EDM.PDOC ---
ED HPI GENERAL MEDICAL PROBLEM - General Chief Complaint: Chest Pain Stated Complaint: CHEST ACHE Time Seen by Provider: 07/23/19 14:22 Source of Information: Reports: Patient History Limitations: Reports: No Limitations - History of Present Illness INITIAL COMMENTS - FREE TEXT/NARRATIVE: 79-year-old male attends the ED in a complement of his . Complaining of multitude of complaints mostly in the epigastrium and lower retrosternal chest pain. Pain in the right side of his neck rating and along the supraspinatus muscle/tendon distribution right shoulder. Seen through the ED yesterday and had a normal ECG and chest x-ray. Today he is more concerned about reoccurrence of a pericardial effusion as he had to have this drained once in the past by Dr. Lopez. He's quite apprehensive. 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 He is receiving Aranesp tablets. Diet is fair has lost some weight since I've seen him last. Eyes cough or sputum production. Feels mildly short of breath. Pain is described as sharp stabbing and some burning component. It seems just gotten worse over the last 5 days since he's been placed on doxycycline 100 mg twice a day for potential infection and amputated distal right third finger. He has a history of dyspepsia and heartburn and hiatal hernia. He also has a history of problems with his heart and COPD. They came seeking a echocardiogram to rule out fluid around his heart. Advised that we cannot perform this test in the ED and if I did it through the the ultrasound department I would get an answer back for a week. However CT of his chest would prove whether or not he had any since significant going on in his lungs or his heart. Onset: Gradual Onset Date: 07/20/19 (Has been having lower retrosternal epigastric pain for the last 3-4 days gradually seems to be getting worse. Of note this coincides with the start of doxycycline 100 mg twice a day 5 days ago for suspect soft tissue infection with MRSA in his amputated distal phalanx of his right third finger.) Duration: Hour(s):, Waxing/Waning Location: Reports: Neck (Pain right lateral neck that radiates along the distribution of the supraspinatus muscle and tendon towards his right shoulder but not down his arm.), Chest (Epigastrium), Abdomen Quality: Reports: Ache, Burning, Sharp, Stabbing Severity: Moderate Improves with: Reports: None Worsens with: Reports: Other (Perhaps worse after taking doxycycline medication. ) Context: Denies: Activity, Exercise, Lifting, Sick Contact, Trauma, Other Associated Symptoms: Reports: Chest Pain (Nonproductive cough), Cough, Loss of Appetite, Shortness of Breath, Weakness. 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 (see below) (No new medications other than doxepin 100 mg twice a day started 5 days ago for suspect infection of the soft tissues of recently amputated distal phalanx of right third finger.) Left Chest Pain Score (Numeric/FACES): 5 - Related Data Allergies Allergy/AdvReac Type Severity Reaction Status Date / Time Penicillins Allergy Cannot Verified 07/23/19 13:15 Remember Home Meds: Home Meds Calcium Carbonate/Vitamin D3 [Caltrate-600 with Vit D Tab] 1 each PO DAILY 05/12 [History] Cholecalciferol (Vitamin D3) [Vitamin D3] 1,000 unit PO DAILY 05/12/18 [History] Clorazepate Dipotassium [Tranxene T-Tab] 7.5 mg PO TID PRN 05/12/18 [History] Felodipine [Felodipine ER] 10 mg PO DAILY 05/12/18 [History] Gluc 2KCl/Chondr/Kelby Hy/Hy Ac [Glucosamine & Chondroitin Cap] 1 each PO DAILY 05/12/18 [History] Levothyroxine 175 mcg PO ACBRK 05/12/18 [History] Omeprazole 20 mg PO BID 05/12/18 [History] Tamsulosin [Flomax] 0.4 mg PO BEDTIME 12/12/18 [History] Vitamin B6-pyridOXINE 100 mg PO DAILY 12/12/18 [History] Doxycycline [Vibramycin] 100 mg PO BID #20 cap 05/23/19 [Rx] Aspirin [Ecotrin EC] 1 tab PO DAILY 07/22/19 [History] Cyanocobalamin (Vitamin B-12) [Vitamin B-12] 1 tab PO DAILY 07/22/19 [History] Darbepoetin Carl [Aranesp] 300 mcg IJ ASDIRECTED 07/22/19 [History] Lactobac Cmb #3/Fos/Pantethine [Probiotic & Acidophilus] 1 cap PO DAILY [History] Lisinopril [Prinivil] 10 mg PO BID 07/22/19 [History] Oxybutynin [Oxybutynin ER] 1 tab PO QPM 07/22/19 [History] PARoxetine HCl [Paxil] 60 mg PO DAILY 07/22/19 [History] Past Medical History HEENT History: Reports: Allergic Rhinitis, Hard of Hearing, Impaired Vision Cardiovascular History: Reports: Hypertension, IA, SOB on Exertion, Other (See Below) Respiratory History: Reports: COPD, Sleep Apnea, Other (See Below) Gastrointestinal History: Reports: GERD Other Gastrointestinal History: inconclusive for crohns disease Genitourinary History: Reports: Other (See Below) Other Genitourinary History: prostatalgia Musculoskeletal History: Reports: Arthritis, Osteoarthritis, Other (See Below) Other Musculoskeletal History: compressed lower disc. 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 Not clear whether this is gout or not. Neurological History: Reports: CVA Psychiatric History: Reports: Anxiety, Depression Endocrine/Metabolic History: Reports: Hypothyroidism Hematologic History: Reports: Anemia, Iron Deficiency, Other (See Below) Other Hematologic History: low hemoglobin and platelets--has been investigated by Dr. Spence technician [employer] systems in [place] and in fact has had a bone marrow biopsy with no positive findings. Therefore the suggestion is whether or not he has a chronic infectious process causing bone marrow suppression versus medication causing bone marrow suppression. Many of his medications were recently discontinued in the believe that one of them may be causing bone marrow suppression and chronic thrombocytopenia and anemia. Oncologic (Cancer) History: Reports: Other (See Below) Other Oncologic History: CMLL - Past Surgical History Cardiovascular Surgical History: Reports: Carotid Endarterectomy, Coronary Artery Stent, Percutaneous Transluminal Angioplasty, Other (See Below) GI Surgical History: Reports: Colonoscopy Musculoskeletal Surgical History: Reports: Other (See Below) Social & Family History - Family History Family Medical History: Noncontributory - Tobacco Use Smoking Status *Q: Never Smoker - Caffeine Use Caffeine Use: Reports: Coffee, Soda - Recreational Drug Use Recreational Drug Use: No - Living Situation & Occupation Living situation: Reports: Occupation: Retired ED ROS GENERAL - Review of Systems Review Of Systems: See Below Constitutional: Reports: Malaise, Weakness, Fatigue, Decreased Appetite, Weight Loss, Other (Some days he can hardly eat at all after taking chemotherapy.). Denies: Fever, Chills HEENT: Reports: Glasses, Hearing Loss Respiratory: Reports: Shortness of Breath, Cough. Denies: Wheezing, Pleuritic Chest Pain, Sputum, Hemoptysis (Nonproductive cough.) Cardiovascular: Reports: Chest Pain, Dyspnea on Exertion, Edema, Lightheadedness (Sometimes his legs swell a bit.). Denies: Blood Pressure Problem, Claudication (Mostly retrosternal lower and epigastrium. No radiation through to his back.), Orthopnea, Palpitations Endocrine: Reports: Fatigue GI/Abdominal: Reports: Abdominal Pain (Epigastric abdominal pain with burning component worse the last 3 or 4 days since starting doxycycline 100 mg twice a day for suspect soft tissue infection in his amputated distal right third finger.), Decreased Appetite. Denies: Difficulty Swallowing, Distension, Flatus , Hematemesis, Hematochezia, Vomiting : Reports: Frequency, Other (Benign prostatic hypertrophy. Nocturia usually 3 ) Musculoskeletal: Reports: Neck Pain, Back Pain, Joint Pain (Increased right- sided neck pain rating to his right shoulder due to loss arthritis of his neck. Knees hips lower back hips at times.) Skin: Reports: Bruising (Bruises fairly easily.) Neurological: Reports: Dizziness, Weakness (Occasional dizzy spells when he stands up too fast. Extremities.) Psychiatric: Reports: Anxiety Hematologic/Lymphatic: Reports: No Symptoms Immunologic: Reports: No Symptoms ED EXAM, GENERAL - Physical Exam Exam: See Below Exam Limited By: No Limitations General Appearance: Alert, Anxious, Mild Distress, Other (Vital signs show temperature 37.2 with a pulse of 97 and sinus. Respiratory distress 20. BP is 1 3469 pulse ox 89% on room air.) Eye Exam: Bilateral Eye: Normal Inspection (Perhaps very mild blepharal pallor.) Throat/Mouth: Normal Inspection (Tongue is mildly dry and coated.), Normal Lips , Normal Oropharynx, Other Head: Atraumatic, Normocephalic Neck: Normal Inspection, Full Range of Motion, Limited Range of Motion, Tender Lateral (Tender laterally particularly in the right side over the facet joints of the cervical spine. Very minimal paraspinal muscle spasm bilaterally. Decreased range of motion with loss of 5-10 of flexion 5 of extension 5 of lateral rotation and flexion.) Respiratory/Chest: Lungs Clear, Normal Breath Sounds, Chest Non-Tender, Decreased Breath Sounds, Other (Mild tachypnea at rest.) Cardiovascular: Regular Rate, Rhythm, No Edema, No Gallop, No Murmur, No Rub. No: Normal Peripheral Pulses Peripheral Pulses: 1+: Posterior Tibial (L), Posterior Tibial (R), Dorsalis Pedis (L), Dorsalis Pedis (R) GI/Abdominal: Normal Bowel Sounds, Soft, Non-Tender, No Organomegaly, No Abnormal Bruit, No Mass, Pelvis Stable, Tender (Very tender in the pit of his stomach and epigastrium on deep palpation.) Back Exam: Normal Inspection, Decreased Range of Motion, Paraspinal Tenderness ( Mild paraspinal muscle spasm and tenderness adjacent to the lumbar spine.), Vertebral Tenderness. No: CVA Tenderness (L), CVA Tenderness (R) Extremities: Normal Inspection, Normal Range of Motion, Non-Tender, No Pedal Edema, Other (Examination of the amputation of the distal phalanx of his right third finger shows the wound is healing very well with no signs of infection at this time. Is no erythema and is cool to touch.) Neurological: Alert, Oriented, CN II-XII Intact, Normal Cognition Psychiatric: Anxious Skin Exam: Warm, Dry, Intact, Normal Color, No Rash Course - Vital Signs Last Recorded V/S: Last Vital Signs Temp 37.2 C 07/23/19 13:11 Pulse 97 07/23/19 13:11 Resp 20 07/23/19 13:11 BP 134/69 07/23/19 13:11 Pulse Ox 89 L 07/23/19 13:11 - Orders/Labs/Meds Orders: Active Orders 24 hr Category Date Time Status EKG Documentation Completion [RC] STAT Care 07/23/19 14:22 Active Labs: Laboratory Tests 07/23/19 07/23/19 07/23/19 Range/Units 14:45 14:45 14:45 WBC 6.45 (4.23-9.07) K/mm3 RBC 3.26 L (4.63-6.08) M/mm3 Hgb 10.1 L (13.7-17.5) gm/dl Hct 33.6 L (40.1-51.0) % MCV 103.1 H (79.0-92.2) fl MCH 31.0 (25.7-32.2) pg MCHC 30.1 L (32.2-35.5) g/dl RDW Std Deviation 60.4 H (35.1-43.9) fL Plt Count 53 L (163-337) K/mm3 MPV 12.7 H (9.4-12.3) fl Neut % (Auto) 37.4 (34.0-67.9) % Lymph % (Auto) 18.4 L (21.8-53.1) % [place]range % (Auto) 42.8 H (5.3-12.2) % Eos % (Auto) 0.3 L (0.8-7.0) Baso % (Auto) 0.2 (0.1-1.2) % Neut # (Auto) 2.41 (1.78-5.38) K/mm3 Lymph # (Auto) 1.19 L (1.32-3.57) K/mm3 [place]range # (Auto) 2.76 H (0.30-0.82) K/mm3 Eos # (Auto) 0.02 L (0.04-0.54) K/mm3 Baso # (Auto) 0.01 (0.01-0.08) K/mm3 Manual Slide Review Abnormal smear PT 11.4 (9.7-12.0) SECONDS INR 1.05 Sodium 142 (136-145) mEq/L Potassium 4.1 (3.5-5.1) mEq/L Chloride 105 (98-107) mEq/L Carbon Dioxide 27 (21-32) mEq/L Anion Gap 14.1 (5-15) BUN 22 H (7-18) mg/dL Creatinine 1.4 H (0.7-1.3) mg/dL Est Cr Clr Drug Dosing 42.07 mL/min Estimated GFR (MDRD) 49 (>60) mL/min BUN/Creatinine Ratio 15.7 (14-18) Glucose 85 (83-115) mg/dL Calcium 9.2 (8.5-10.1) mg/dL Magnesium (1.8-2.4) mg/dl Total Bilirubin 1.0 (0.2-1.0) mg/dL AST 21 (15-37) U/L ALT 18 (16-63) U/L Alkaline Phosphatase 112 (46-116) U/L Troponin I < 0.017 (0.00-0.056) ng/mL C-Reactive Protein (<1.0) mg/dL NT-Pro-B Natriuret Pep (0-450) pg/mL Total Protein 8.1 (6.4-8.2) g/dl Albumin 3.6 (3.4-5.0) g/dl Globulin 4.5 gm/dL Albumin/Globulin Ratio 0.8 L (1-2) 07/23/19 07/23/19 Range/Units 14:45 14:45 WBC (4.23-9.07) K/mm3 RBC (4.63-6.08) M/mm3 Hgb (13.7-17.5) gm/dl Hct (40.1-51.0) % MCV (79.0-92.2) fl MCH (25.7-32.2) pg MCHC (32.2-35.5) g/dl RDW Std Deviation (35.1-43.9) fL Plt Count (163-337) K/mm3 MPV (9.4-12.3) fl Neut % (Auto) (34.0-67.9) % Lymph % (Auto) (21.8-53.1) % Lagrange % (Auto) (5.3-12.2) % Eos % (Auto) (0.8-7.0) Baso % (Auto) (0.1-1.2) % Neut # (Auto) (1.78-5.38) K/mm3 Lymph # (Auto) (1.32-3.57) K/mm3 [place] # (Auto) (0.30-0.82) K/mm3 Eos # (Auto) (0.04-0.54) K/mm3 Baso # (Auto) (0.01-0.08) K/mm3 Manual Slide Review PT (9.7-12.0) SECONDS INR Sodium (136-145) mEq/L Potassium (3.5-5.1) mEq/L Chloride (98-107) mEq/L Carbon Dioxide (21-32) mEq/L Anion Gap (5-15) BUN (7-18) mg/dL Creatinine (0.7-1.3) mg/dL Est Cr Clr Drug Dosing mL/min Estimated GFR (MDRD) (>60) mL/min BUN/Creatinine Ratio (14-18) Glucose (83-115) mg/dL Calcium (8.5-10.1) mg/dL Magnesium 2.0 (1.8-2.4) mg/dl Total Bilirubin (0.2-1.0) mg/dL AST (15-37) U/L ALT (16-63) U/L Alkaline Phosphatase (46-116) U/L Troponin I (0.00-0.056) ng/mL C-Reactive Protein 3.3 H* (<1.0) mg/dL NT-Pro-B Natriuret Pep 214 (0-450) pg/mL Total Protein (6.4-8.2) g/dl Albumin (3.4-5.0) g/dl Globulin gm/dL Albumin/Globulin Ratio (1-2) Meds: Medications Discontinued Medications Generic Name Dose Route Start Last Admin Trade Name Freq PRN Reason Stop Dose Admin Iopamidol 100 ml 07/23/19 15:28 07/23/19 16:00 Isovue-300 (61%) IVPUSH 07/23/19 15:29 100 ml ONETIME ONE Administration Sodium Chloride 10 ml 07/23/19 15:28 07/23/19 16:00 Saline Flush FLUSH 10 ml ONETIME PRN Administration KEEP VEIN OPEN - Radiology Interpretation Free Text/Narrative:: 79-year-old male attends the ED for reevaluation of epigastric pain and lower retrosternal chest pressure discomfort. The history suggests this is worse since he started doxazosin 100 mg twice daily for suspect soft tissue infection with MRSA in the recently amputated proximal phalanx of his right third finger. He was seen in the ED yesterday had a normal chest x-ray and was reassured he refused lab work at that time is he just had a bunch lab work at the clinic. He has chronic myelogenous leukemia and is on Aranesp for chemotherapy. He has underlying heart condition knees had various aches and pains. Is right upper neck and into his right shoulder. Examination suggests pain is in the epigastrium not so much in his chest. He is very concerned that he has a recurrence of fluid around his heart. Seeking an echocardiogram of his heart. Do this but I don't have the time. If we did it in the department which they will not do today at any rate will be sent off to [facility] to be over read take a week to get results. For decision made to give him a GI cocktail see if this settled down his epigastric pain. I suspect is due to irritation from the doxycycline. I will perform a CT of his chest with IV contrast to rule out any hemopericardium or pericardial effusion and/or any other lung problem. Routine labs will also be carried out to rule out heart related illness. We will have to await his dad need before proceeding with CT chest with contrast. ECG reveals no evidence of any acute - Re-Assessments/Exams Free Text/Narrative Re-Assessment/Exam: 07/23/19 16:43 Labs reveal a normal white count at 6.45. The differential reveals 37.4% neutrophils on the auto differential and 42.38% monocytes. He has a known CML. Hemoglobin is 10.1 with hematocrit of 33.6. MCV slightly elevated 103.1. Platelet count 53,000. He has a known chronic thrombocytopenia. The slide shows monocytosis. PT is 11.4 with an INR 1.05 mildly elevated. Sodium 142 with a potassium of 4.1. Chloride is 105 with a bicarbonate 27. Anion gap is 14.1. B1 is 22 with a creatinine of 1.4. GFR is 49. Glucose 85 with a calcium of 9.2. Magnesium is normal at 2.0. Liver function is normal. Troponin I is less than 0.017. C-reactive protein is 3.3. BNP is 214. Total protein 8.1 albumin fraction 3.6. 07/23/19 16:43 CT scan of the chest has been completed with contrast. No prior CT`s for comparison purposes. Aorta shows diffuse atherosclerotic calcification with no signs of aneurysm. There is mild coronary artery calcification. No pericardial effusion or pericardial wall thickening is seen. Spleen is incompletely included on this exam but is suggested to be somewhat enlarged. Patient has known CML. Patient has a small hiatal hernia. Single surgical clip is seen at the gastroesophageal junction. Very slight parenchymal densities noted within the inferior left upper lung near the major fissure which is most likely due to slight atelectasis. Lungs otherwise show no acute parenchymal changes. No pleural effusions are identified no pneumothorax is seen. Setting show scattered degenerative spurring within the spine with several chronic appearing mild compression deformities. No acute osseous abnormalities are identified. He has a lot of pain in his lower cervical spine which again is going to be due to degenerative arthritis. There is some radicular pain into his right superior shoulder in the distribution of the supraspinatus tendon clinically he has mild rotator cuff disease as well. Be on meloxicam and still has a prescription at home for this I think this is the safest thing for him to return to. 0.5 mg twice daily. Vitamin drink plenty of fluids today to help get rid of the contrast media that we gave him today to minimize any effect on his kidney function. Departure - Departure Time of Disposition: 16:51 Disposition: Home, Self-Care 01 Condition: Fair Clinical Impression: Compression fracture of body of thoracic vertebra, Dyspepsia, Atypical chest pain Degenerative arthritis of cervical spine Qualifiers: Spinal osteoarthritis complication: with radiculopathy Qualified Code(s): M47.22 - Other spondylosis with radiculopathy, cervical region Degenerative arthritis of thoracic spine Qualifiers: Spinal osteoarthritis complication: without myelopathy or radiculopathy Qualified Code(s): M47.814 - Spondylosis without myelopathy or radiculopathy, thoracic region Instructions: Spinal Compression Fracture Referrals: Ed Mcgill MD [Primary Care Provider] - Forms: ED Department Discharge Additional Instructions: Evaluation the emergency room today in regards to persistent pain in the pit of the stomach and lower retrosternal chest. Concern is whether or not she ever recurrence of fluid buildup around her heart. 4 CT scan of your chest was performed with contrast and it does not reveal any fluid buildup around the heart. There is no fluid in the lungs. There is mild focal atelectasis which means lung compression from not taking good deep breaths in the lower lung knapp only. No sign of cancer in the lungs. There is mild emphysematous change. Surgical clip appreciated at the gastroesophageal junction at site of previous surgery on hiatal hernia. Suspect you're getting pain in the pit of your stomach from hiatal hernia and esophagitis. I suspect doxycycline tablet that you're currently taking for infection in your right amputated fingertip may be irritating this area. Suggest taking it for only another 2 days and then discontinuing it. The CT does show advanced degenerative arthritis at multiple levels in your cervical spine or neck and throat are low thoracic spine with multiple compression fractures. Therefore a lot of your current pain syndrome in your neck right upper shoulder is due to arthritis in the neck and back. I would suggest starting back on meloxicam 7.5 mg once daily or twice daily as needed to control inflammation in the bones. Your kidney function will have to be monitored along the way but to have lab tests done very frequently due to your chronic myelocytic leukemia. I would suggest having some Gaviscon antacid on hand and taking a tablet or a tablespoon full at bedtime to help with your stomach and prevent reflux of acid into the lower food pipe during the night when you're sleeping to help with a stomach problem. Continue omeprazole 20 mg once daily. Follow-up with personal physician if any further problems occur. Of note the lab tests were done and showed no changes compared to yesterday as far as your hematology goes. The chemistry also proved to be within normal limits with no signs of any heart related illness. - My Orders Last 24 Hours: My Active Orders 07/23/19 14:22 EKG Documentation Completion [RC] STAT - Assessment/Plan Last 24 Hours: My Active Orders 07/23/19 14:22 EKG Documentation Completion [RC] STAT
[2019-07-23] MEDS ORDERED: Sodium Chloride 0.9% 10 ML Syringe FLUSH PRN (15:28)
[2019-07-23] MEDS ORDERED: Iopamidol 612 MG/ML 100 ML Bottle IVPUSH ONE (15:28)
--- NOTE | 2019-07-23 16:20 | CT ---
CT chest Technique: Multiple axial sections were obtained from above the lung apices inferiorly through the lung bases. Intravenous contrast was utilized. Comparison: No prior chest CT is available, previous chest x-ray performed one day earlier on 07/22/19. Findings: Aorta shows atherosclerotic calcification with no aneurysm. Mild coronary artery calcification is seen. No pericardial effusion or pericardial thickening is seen. Spleen is incompletely included on this exam but is suggested to be somewhat enlarged. Small hiatal hernia is seen. Single surgical clip is seen at the gastroesophageal junction. Very slight parenchymal density is noted within the inferior left upper lung near the major fissure which is most likely due to slight atelectasis. Lungs otherwise show no acute parenchymal change. No pleural effusions are seen. No pneumothorax is seen. Bone window settings shows scattered degenerative spurring within the spine with several chronic appearing mild compression deformities. No acute osseous abnormality is identified. Impression: 1. No pericardial effusion or pericardial thickening is seen. 2. Spleen is incompletely included on the study but is suggested to be enlarged. 3. Other findings believed to be incidental as noted above. Diagnostic code #3
== END 2019-07-23 17:03 | disposition home or self-care (01) ==
LOC: JD.ED 12:47
DX: M48.54XA Collapsed vertebra, not elsewhere classified, thoracic region, initial encounter for fracture (principal); C92.10 Chronic myeloid leukemia, BCR/ABL-positive, not having achieved remission; M47.22 Other spondylosis with radiculopathy, cervical region; M47.814 Spondylosis without myelopathy or radiculopathy, thoracic region; R07.89 Other chest pain; R10.13 Epigastric pain; I25.2 Old myocardial infarction; I10 Essential (primary) hypertension; J44.9 Chronic obstructive pulmonary disease, unspecified; K21.9 Gastro-esophageal reflux disease without esophagitis; F41.9 Anxiety disorder, unspecified; F32.9 Major depressive disorder, single episode, unspecified; E03.9 Hypothyroidism, unspecified; Z86.73 Personal history of transient ischemic attack (TIA), and cerebral infarction without residual deficits; Z89.021 Acquired absence of right finger(s); Z88.0 Allergy status to penicillin; Z79.899 Other long term (current) drug therapy; Z79.82 Long term (current) use of aspirin
CPT/HCPCS: 36415; 71260; 80053; 83735; 83880; 84484; 85025; 85610; 86140; 93005; 99285; Q9967; 99284

== ENCOUNTER 2020-05-28 10:25 | Emergency (ER) | payer MEDICARE, OTHER ==
[2020-05-28] MEDS ORDERED: Sodium Chloride 0.9% 10 ML Syringe FLUSH PRN (12:44)
--- NOTE | 2020-05-28 12:47 | EDM.PDOC ---
ED HPI GENERAL MEDICAL PROBLEM - General Chief Complaint: General Stated Complaint: FEVER,DIARRHEA,AND VOMITING Time Seen by Provider: 05/28/20 12:35 Source of Information: Reports: Patient, Family History Limitations: Reports: No Limitations - History of Present Illness INITIAL COMMENTS - FREE TEXT/NARRATIVE: Patient is a 80-year-old male who presents to the emergency department after having an episode of vomiting, diarrhea, and fever at home. Patient states around midnight last night he became nauseous and vomited 2 times. He had a few episodes of diarrhea as well. This morning his check his temperature and it was 100.0. Patient has a history of CMLL, therefore his is concerned that he could have a infectious process going on. She also states that he ate at a cafeteria yesterday around noon, so she feels that food poisoning may also be in the differential. He has not had a known exposure to coronavirus, however he has gone to the clinic for his Aranesp infusions and has been out in public on a number of occasions. He wears a mask while in public. He denies any feeling of abdominal pain at the time of his episode and currently has no symptoms. Temperature on triage was 98.6 and he has not taken any antipyretic medications. He no longer feels nauseous and has no abdominal pain. He denies any cough or shortness of breath. - Related Data Allergies Allergy/AdvReac Type Severity Reaction Status Date / Time Penicillins Allergy Severe Cannot Verified 05/28/20 16:40 Remember levofloxacin [From Levaquin] Allergy Edema Verified 05/28/20 16:39 Sulfa (Sulfonamide Allergy Hives Verified 05/28/20 16:39 Antibiotics) Home Meds: Home Meds Calcium Carbonate/Vitamin D3 [Caltrate-600 with Vit D Tab] 1 each PO DAILY 05/12/18 [History] Cholecalciferol (Vitamin D3) [Vitamin D3] 1,000 unit PO DAILY 05/12/18 [History] Clorazepate Dipotassium [Tranxene T-Tab] 7.5 mg PO TID PRN 05/12/18 [History] Felodipine [Felodipine ER] 10 mg PO DAILY 05/12/18 [History] Glucosam/Chondr/Collagn/Hyalur [Glucosamine & Chondroitin Cap] 1 each PO DAILY 05/12/18 [History] Levothyroxine 175 mcg PO ACBRK 05/12/18 [History] Omeprazole 20 mg PO BID 05/12/18 [History] Tamsulosin [Flomax] 0.4 mg PO BEDTIME 12/12/18 [History] Vitamin B6-pyridOXINE 100 mg PO DAILY 12/12/18 [History] Aspirin [Ecotrin EC] 1 tab PO DAILY 07/22/19 [History] Cyanocobalamin (Vitamin B-12) [Vitamin B-12] 1 tab PO DAILY 07/22/19 [History] Darbepoetin Carl [Aranesp] 300 mcg IJ ASDIRECTED 07/22/19 [History] Lactobacillus 3/Fos/Pantethine [Probiotic & Acidophilus] 1 cap PO DAILY 07/22/19 [History] PARoxetine HCl [Paxil] 60 mg PO DAILY 07/22/19 [History] lisinopriL [Prinivil] 10 mg PO BID 07/22/19 [History] Azithromycin 250 mg PO ASDIRECTED #6 tablet 05/28/20 [Rx] Cefpodoxime [Vantin] 200 mg PO BID 7 Days #14 tab 05/28/20 [Rx] Oxybutynin 5 mg PO DAILY 05/28/20 [History] Past Medical History HEENT History: Reports: Allergic Rhinitis, Hard of Hearing, Impaired Vision Cardiovascular History: Reports: Hypertension, IA, SOB on Exertion Respiratory History: Reports: COPD, Sleep Apnea Gastrointestinal History: Reports: GERD Other Gastrointestinal History: inconclusive for crohns disease Genitourinary History: Reports: Other (See Below) Other Genitourinary History: prostatalgia Musculoskeletal History: Reports: Arthritis, Osteoarthritis, Other (See Below) Other Musculoskeletal History: compressed lower disc. 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 Not clear whether this is gout or not. Neurological History: Reports: CVA Psychiatric History: Reports: Anxiety, Depression Endocrine/Metabolic History: Reports: Hypothyroidism Hematologic History: Reports: Anemia, Iron Deficiency, Other (See Below) Other Hematologic History: low hemoglobin and platelets--has been investigated by Dr. Spence beet end supervisor in [place] and in fact has had a bone marrow biopsy with no positive findings. Therefore the suggestion is whether or not he has a chronic infectious process causing bone marrow suppression versus medication causing bone marrow suppression. Many of his medications were recently discontin ued in the believe that one of them may be causing bone marrow suppression and chronic thrombocytopenia and anemia. Oncologic (Cancer) History: Reports: Other (See Below) Other Oncologic History: CMLL - Past Surgical History Cardiovascular Surgical History: Reports: Carotid Endarterectomy, Coronary Artery Stent, Percutaneous Transluminal Angioplasty GI Surgical History: Reports: Colonoscopy Musculoskeletal Surgical History: Reports: Other (See Below) Social & Family History - Family History Family Medical History: Noncontributory - Caffeine Use Caffeine Use: Reports: Coffee, Soda - Living Situation & Occupation Living situation: Reports: Occupation: Retired ED ROS GENERAL - Review of Systems Review Of Systems: See Below Constitutional: Reports: Fever. Denies: Weakness, Fatigue, Decreased Appetite HEENT: Reports: No Symptoms Respiratory: Reports: No Symptoms. Denies: Shortness of Breath, Cough Cardiovascular: Reports: No Symptoms. Denies: Chest Pain Endocrine: Reports: No Symptoms GI/Abdominal: Reports: Diarrhea, Nausea, Vomiting. Denies: Abdominal Pain : Reports: No Symptoms Musculoskeletal: Reports: No Symptoms Skin: Reports: No Symptoms Neurological: Reports: No Symptoms. Denies: Confusion, Dizziness, Headache Psychiatric: Reports: No Symptoms Hematologic/Lymphatic: Reports: No Symptoms Immunologic: Reports: No Symptoms ED EXAM, GENERAL - Physical Exam Exam: See Below Exam Limited By: No Limitations General Appearance: Alert, WD/WN, No Apparent Distress Respiratory/Chest: No Respiratory Distress, Lungs Clear, Normal Breath Sounds, No Accessory Muscle Use, Chest Non-Tender Cardiovascular: Normal Peripheral Pulses, Regular Rate, Rhythm, No Edema, No Gallop, No JVD, No Murmur, No Rub GI/Abdominal: Normal Bowel Sounds, Soft, Non-Tender, No Organomegaly, No Distention, No Abnormal Bruit, No Mass Extremities: Normal Inspection, Normal Range of Motion, Non-Tender, Normal Capillary Refill, No Pedal Edema Neurological: Alert, Oriented, CN II-XII Intact, Normal Cognition, Normal Gait, Normal Reflexes, No Motor/Sensory Deficits Psychiatric: Normal Affect, Normal Mood Skin Exam: Warm, Dry, Intact, Normal Color, No Rash Course - Vital Signs Last Recorded V/S: Last Vital Signs Temp 98.6 F 05/28/20 10:56 Pulse 99 05/28/20 10:56 Resp 16 05/28/20 10:56 BP 112/51 L 05/28/20 10:56 Pulse Ox 92 L 05/28/20 10:56 - Orders/Labs/Meds Orders: Active Orders 24 hr Category Date Time Status Peripheral IV Care [RC] . DIRECTED Care 05/28/20 12:44 Active CULTURE BLOOD [BC] Stat Lab 05/28/20 13:20 Received Blood Culture x2 Reflex Set [OM.PC] Stat Oth 05/28/20 12:43 Ordered Peripheral IV Insertion Adult [OM.PC] Stat Oth 05/28/20 12:43 Ordered Labs: Laboratory Tests 05/28/20 05/28/20 05/28/20 Range/Units 13:20 13:20 14:20 WBC 6.90 (4.23-9.07) K/mm3 RBC 3.11 L (4.63-6.08) M/mm3 Hgb 9.5 L (13.7-17.5) gm/dl Hct 32.3 L (40.1-51.0) % MCV 103.9 H (79.0-92.2) fl MCH 30.5 (25.7-32.2) pg MCHC 29.4 L (32.2-35.5) g/dl RDW Std Deviation 61.1 H (35.1-43.9) fL Plt Count 50 L (163-337) K/mm3 MPV 12.9 H (9.4-12.3) fl Neut % (Auto) 40.8 (34.0-67.9) % Lymph % (Auto) 15.9 L (21.8-53.1) % Tift % (Auto) 40.9 H (5.3-12.2) % Eos % (Auto) 0.4 L (0.8-7.0) Baso % (Auto) 0.3 (0.1-1.2) % Neut # (Auto) 2.81 (1.78-5.38) K/mm3 Lymph # (Auto) 1.10 L (1.32-3.57) K/mm3 Tift # (Auto) 2.82 H (0.30-0.82) K/mm3 Eos # (Auto) 0.03 L (0.04-0.54) K/mm3 Baso # (Auto) 0.02 (0.01-0.08) K/mm3 Manual Slide Review Abnormal smear Sodium 140 (136-145) mEq/L Potassium 3.5 (3.5-5.1) mEq/L Chloride 105 (98-107) mEq/L Carbon Dioxide 26 (21-32) mEq/L Anion Gap 12.5 (5-15) BUN 18 (7-18) mg/dL Creatinine 1.4 H (0.7-1.3) mg/dL Est Cr Clr Drug Dosing 41.39 mL/min Estimated GFR (MDRD) 49 (>60) mL/min BUN/Creatinine Ratio 12.9 L (14-18) Glucose 82 L (83-115) mg/dL Lactic Acid (0.4-2.0) mmol/L Calcium 8.2 L (8.5-10.1) mg/dL Total Bilirubin 1.2 H (0.2-1.0) mg/dL AST 24 (15-37) U/L ALT 20 (16-63) U/L Alkaline Phosphatase 98 (46-116) U/L C-Reactive Protein 2.1 H* (<1.0) mg/dL Total Protein 7.4 (6.4-8.2) g/dl Albumin 3.2 L (3.4-5.0) g/dl Globulin 4.2 gm/dL Albumin/Globulin Ratio 0.8 L (1-2) SARS Virus RNA (PCR) Negative (NEGATIVE) 05/28/20 Range/Units 15:06 WBC (4.23-9.07) K/mm3 RBC (4.63-6.08) M/mm3 Hgb (13.7-17.5) gm/dl Hct (40.1-51.0) % MCV (79.0-92.2) fl MCH (25.7-32.2) pg MCHC (32.2-35.5) g/dl RDW Std Deviation (35.1-43.9) fL Plt Count (163-337) K/mm3 MPV (9.4-12.3) fl Neut % (Auto) (34.0-67.9) % Lymph % (Auto) (21.8-53.1) % Tift % (Auto) (5.3-12.2) % Eos % (Auto) (0.8-7.0) Baso % (Auto) (0.1-1.2) % Neut # (Auto) (1.78-5.38) K/mm3 Lymph # (Auto) (1.32-3.57) K/mm3 Tift # (Auto) (0.30-0.82) K/mm3 Eos # (Auto) (0.04-0.54) K/mm3 Baso # (Auto) (0.01-0.08) K/mm3 Manual Slide Review Sodium (136-145) mEq/L Potassium (3.5-5.1) mEq/L Chloride (98-107) mEq/L Carbon Dioxide (21-32) mEq/L Anion Gap (5-15) BUN (7-18) mg/dL Creatinine (0.7-1.3) mg/dL Est Cr Clr Drug Dosing mL/min Estimated GFR (MDRD) (>60) mL/min BUN/Creatinine Ratio (14-18) Glucose (83-115) mg/dL Lactic Acid 0.7 (0.4-2.0) mmol/L Calcium (8.5-10.1) mg/dL Total Bilirubin (0.2-1.0) mg/dL AST (15-37) U/L ALT (16-63) U/L Alkaline Phosphatase (46-116) U/L C-Reactive Protein (<1.0) mg/dL Total Protein (6.4-8.2) g/dl Albumin (3.4-5.0) g/dl Globulin gm/dL Albumin/Globulin Ratio (1-2) SARS Virus RNA (PCR) (NEGATIVE) Meds: Medications Discontinued Medications Generic Name Dose Route Start Last Admin Trade Name Freq PRN Reason Stop Dose Admin Azithromycin 500 mg 05/28/20 17:09 Zithromax PO 05/28/20 17:10 ONETIME ONE Cefpodoxime Proxetil 200 mg 05/28/20 17:08 Vantin PO 05/28/20 17:09 ONETIME ONE Levofloxacin 750 mg 05/28/20 16:06 Levaquin PO 05/28/20 16:07 ONETIME ONE Sodium Chloride 10 ml 05/28/20 12:44 05/28/20 13:57 Saline Flush FLUSH 10 ml ASDIRECTED PRN Administration Keep Vein Open - Re-Assessments/Exams Free Text/Narrative Re-Assessment/Exam: 05/28/20 16:04 Hematology was significant for hemoglobin low at 9.5, platelets low at 50, cre atinine slightly elevated at 1.4, CRP 2.1. Coronavirus screen was negative. Patient's lactic acid is normal. Chest x-ray does show an infiltrate in the right lower lobe suggestive of pneumonia. Patient's oxygen saturation has been 91 to 92% on room air which his states is his normal. Patient stated that he would like to go home and that he "feels great". He is having no pain, cough, or shortness of breath. Blood cultures have been sent. He has had no further nausea vomiting or diarrhea. We will start the patient on Levaquin for pneumonia and discharge home. 05/28/20 17:04 Was notified by nursing staff that on discharge, patient's stated that he is allergic to Levaquin, although he had previously only listed penicillin as an allergy. While I was in the process of ordering a new treatment regimen, the patient and his left the facility. He did not receive a dose of Levaquin in the ER. Nursing staff attempted to call the patient, however there was no answer. Voicemail was left. I will send a prescription for azithromycin and Vantin to [facility]. Recommend that they pick this up tomorrow and take as prescribed. 05/28/20 17:43 Patient called back and let nursing staff know that he would like the prescription E scribed to [place] [facility] in [facility]. I canceled the prescription to [facility] and E. Scribed, Vantin and azithromycin to [place] [facility] in [facility]. Departure - Departure Time of Disposition: 16:21 Disposition: Home, Self-Care 01 Condition: Good Clinical Impression: Pneumonia - Discharge Information *PRESCRIPTION DRUG MONITORING PROGRAM REVIEWED*: No *COPY OF PRESCRIPTION DRUG MONITORING REPORT IN PATIENT GERMAINE: No Prescriptions: Azithromycin 250 mg PO ASDIRECTED #6 tablet Cefpodoxime [Vantin] 200 mg PO BID 7 Days #14 tab Instructions: Community-Acquired Pneumonia, Adult, [id number] Referrals: Ed Mcgill MD [Primary Care Provider] - Forms: ED Department Discharge Additional Instructions: You were seen in the emergency department today for fever, and an episode of v omiting and diarrhea last night. Your work-up included blood work, chest x-ray, and a coronavirus test. Your chest x-ray does show that you have a right lower lobe pneumonia. Coronavirus testing was negative. Your oxygen saturation was in the normal range for you while in the emergency department. You are no longer febrile. You been started on Levaquin which is an antibiotic for your pneumonia. First dose was given in the ER. You will take this once daily for a total of 7 days. If you should experience any new or worsening symptoms of concern, please return to the emergency department. Sepsis Event Note (ED) - Evaluation Sepsis Screening Result: No Definite Risk - My Orders Last 24 Hours: My Active Orders 05/28/20 12:43 Blood Culture x2 Reflex Set [OM.PC] Stat Peripheral IV Insertion Adult [OM.PC] Stat 05/28/20 12:44 Peripheral IV Care [RC] . DIRECTED 05/28/20 13:20 CULTURE BLOOD [BC] Stat - Assessment/Plan Last 24 Hours: My Active Orders 05/28/20 12:43 Blood Culture x2 Reflex Set [OM.PC] Stat Peripheral IV Insertion Adult [OM.PC] Stat 05/28/20 12:44 Peripheral IV Care [RC] . DIRECTED 05/28/20 13:20 CULTURE BLOOD [BC] Stat
--- NOTE | 2020-05-28 14:15 | CR ---
Chest: Portable view of the chest was obtained. Comparison: Prior chest x-ray of 07/22/19. Increased density is noted within the right cardiophrenic angle as an interval change from prior exam. Lungs otherwise are clear. Heart is enlarged. Tortuous thoracic aorta is noted. Bony structures are grossly intact. Impression: 1. Increased density within right cardiophrenic angle raising the possibility of an area of pneumonia. Diagnostic code #3 This report was dictated in MDT
[2020-05-28] MEDS ORDERED: Levofloxacin 750 MG Tab PO ONE (16:06)
[2020-05-28] MEDS ORDERED: Azithromycin 250 MG Tab PO ONE (17:09)
== END 2020-05-28 17:15 | disposition home or self-care (01) ==
LOC: JD.ED 10:25
DX: J18.9 Pneumonia, unspecified organism (principal); I10 Essential (primary) hypertension; I25.2 Old myocardial infarction; K21.9 Gastro-esophageal reflux disease without esophagitis; M19.90 Unspecified osteoarthritis, unspecified site; F41.9 Anxiety disorder, unspecified; F32.9 Major depressive disorder, single episode, unspecified; E03.9 Hypothyroidism, unspecified; Z20.828 Contact with and (suspected) exposure to other viral communicable diseases; Z88.0 Allergy status to penicillin; Z88.8 Allergy status to other drugs, medicaments and biological substances; Z88.2 Allergy status to sulfonamides; Z79.899 Other long term (current) drug therapy; Z79.82 Long term (current) use of aspirin; Z88.1 Allergy status to other antibiotic agents; Z86.73 Personal history of transient ischemic attack (TIA), and cerebral infarction without residual deficits
CPT/HCPCS: 36415; 71045; 80053; 83605; 85025; 86140; 87040; 99284; U0002; 99283

== ENCOUNTER 2020-09-20 14:33 | Emergency (ER) | payer MEDICARE, OTHER ==
[2020-09-20] MEDS ORDERED: Ondansetron 4 MG/2 ML SDV IVPUSH ONE (14:53)
--- NOTE | 2020-09-20 14:58 | EDM.PDOC ---
ED HPI GENERAL MEDICAL PROBLEM - General Chief Complaint: Chest Pain Stated Complaint: CHEST PAIN Time Seen by Provider: 09/20/20 14:42 Source of Information: Reports: Patient History Limitations: Reports: No Limitations - History of Present Illness INITIAL COMMENTS - FREE TEXT/NARRATIVE: 80-year-old male presents to the ED with recurrent bouts of central chest pressure heaviness associated with feeling like he is going to vomit. He states he gets a funny taste in his mouth normal is drooling and he usually heads for the toilet. He has not vomited yet. It starts with a welling up sensation in the pit of his stomach and then moves up into his central chest. It occurred today and lasted for about 45 minutes. It occurred the day before yesterday with a similar in a similar fashion. He states it makes him weak and it is difficult to walk because he is dizzy and lightheaded. He is currently being treated for chronic lymphocytic leukemia with chemotherapy every 2 weeks. Patient believes he has had a heart attack in the past. He has no stents or open heart surgery. He has chronic hypertension. Some changes in medications. He denies any real symptoms of gastroesophageal reflux disease. Used to have a quite badly. Denies any diarrhea. He has no nitroglycerin tablets to take when he develops this type of discomfort. ECG done by the triage nurse today shows sinus rhythm 73/min with frequent premature atrial contractions. The P waves are very difficult to see. There is also a nonspecifc intraventricular conduction delay pattern i.e. incomplete left bundle branch block. 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 There are no signs of acute ischemic changes. At the time he was seen in the ED is not having any central chest discomfort. Onset: Today, Sudden Onset Date: 09/20/20 Onset Time: 12:45 Duration: Minutes:, Waxing/Waning Location: Reports: Chest (Chest pressure heaviness. Does not radiate through to his back) Quality: Reports: Ache ( or up into his neck or shoulder.), Pressure Severity: Mild Improves with: Reports: None Worsens with: Reports: Other Context: Reports: Other. Denies: Activity (And think of anything that makes it worse. Eating certainly does not seem to be related to it.), Exercise, Lifting, Sick Contact, Trauma Associated Symptoms: Reports: Chest Pain (Chest pain), Malaise, Nausea/Vomiting, Shortness of Breath, Weakness (Nausea but no vomiting). Denies: No Other Symptoms, Confusion ( pressure discomfort), Cough, cough w sputum (Tenuous occurrences.), Diaphoresis, Fever/Chills, Headaches, Loss of Appetite, Rash (Exertion), Seizure, Syncope Treatments BLEACH TESTER: Reports: Other (see below) - Related Data Allergies Allergy/AdvReac Type Severity Reaction Status Date / Time Penicillins Allergy Severe Cannot Verified 09/20/20 14:45 Remember levofloxacin [From Levaquin] Allergy Edema Verified 09/20/20 14:45 Sulfa (Sulfonamide Allergy Hives Verified 09/20/20 14:45 Antibiotics) Home Meds: Home Meds Calcium Carbonate/Vitamin D3 [Caltrate-600 with Vit D Tab] 1 each PO DAILY 05/12/18 [History] Cholecalciferol (Vitamin D3) [Vitamin D3] 1,000 unit PO DAILY 05/12/18 [History] Clorazepate Dipotassium [Tranxene T-Tab] 7.5 mg PO TID PRN 05/12/18 [History] Felodipine [Felodipine ER] 10 mg PO DAILY 05/12/18 [History] Glucosam/Chondr/Collagn/Hyalur [Glucosamine & Chondroitin Cap] 1 each PO DAILY 05/12/18 [History] Levothyroxine 175 mcg PO ACBRK 05/12/18 [History] Omeprazole 20 mg PO BID 05/12/18 [History] Tamsulosin [Flomax] 0.4 mg PO BEDTIME 12/12/18 [History] Vitamin B6-pyridOXINE 100 mg PO DAILY 12/12/18 [History] Aspirin [Ecotrin EC] 1 tab PO DAILY 07/22/19 [History] Cyanocobalamin (Vitamin B-12) [Vitamin B-12] 1 tab PO DAILY 07/22/19 [History] Darbepoetin Carl [Aranesp] 300 mcg IJ ASDIRECTED 07/22/19 [History] Lactobacillus 3/Fos/Pantethine [Probiotic & Acidophilus] 1 cap PO DAILY 07/22/19 [History] PARoxetine HCl [Paxil] 60 mg PO DAILY 07/22/19 [History] lisinopriL [Prinivil] 10 mg PO BID 07/22/19 [History] Azithromycin 250 mg PO ASDIRECTED #6 tablet 05/28/20 [Rx] Cefpodoxime [Vantin] 200 mg PO BID 7 Days #14 tab 05/28/20 [Rx] Oxybutynin 5 mg PO DAILY 05/28/20 [History] Ondansetron [Zofran] 4 mg BUCCAL Q6H PRN #8 tab 09/20/20 [Rx] Past Medical History HEENT History: Reports: Allergic Rhinitis, Hard of Hearing, Impaired Vision Cardiovascular History: Reports: Hypertension, [place], SOB on Exertion Respiratory History: Reports: COPD, Sleep Apnea Gastrointestinal History: Reports: GERD Other Gastrointestinal History: inconclusive for crohns disease Genitourinary History: Reports: Other (See Below) Other Genitourinary History: prostatalgia Musculoskeletal History: Reports: Arthritis, Osteoarthritis, Other (See Below) Other Musculoskeletal History: compressed lower disc. 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 Not clear whether this is gout or not. Neurological History: Reports: CVA Psychiatric History: Reports: Anxiety, Depression Endocrine/Metabolic History: Reports: Hypothyroidism Hematologic History: Reports: Anemia, Iron Deficiency, Other (See Below) Other Hematologic History: low hemoglobin and platelets--has been investigated by Dr. Spence tankage supervisor in [place] and in fact has had a bone marrow biopsy with no positive findings. Therefore the suggestion is whether or not he has a chronic infectious process causing bone marrow suppression versus medication causing bone marrow suppression. Many of his medications were recently discontinued in the believe that one of them may be causing bone marrow suppression and chronic thrombocytopenia and anemia. Oncologic (Cancer) History: Reports: Other (See Below) Other Oncologic History: CMLL - Past Surgical History Cardiovascular Surgical History: Reports: Carotid Endarterectomy, Coronary Artery Stent, Percutaneous Transluminal Angioplasty GI Surgical History: Reports: Colonoscopy Musculoskeletal Surgical History: Reports: Other (See Below) Social & Family History - Family History Family Medical History: No Pertinent Family History - Caffeine Use Caffeine Use: Reports: Coffee, Soda - Living Situation & Occupation Living situation: Reports: Occupation: Retired ED ROS GENERAL - Review of Systems Review Of Systems: See Below Constitutional: Reports: Malaise, Weakness, Fatigue, Decreased Appetite, Weight Loss (He states he is slowly losing weight.). Denies: Fever, Chills HEENT: Reports: Glasses, Hearing Loss (Mildly hard of hearing.) Respiratory: Reports: Shortness of Breath. Denies: Wheezing, Pleuritic Chest Pain, Cough, Sputum Cardiovascular: Reports: Chest Pain (See history of present illness), Blood Pressure Problem, Dyspnea on Exertion. Denies: Claudication, Edema, Li ghtheadedness, Orthopnea Endocrine: Reports: Fatigue GI/Abdominal: Reports: Decreased Appetite. Denies: Abdominal Pain, Constipation, Diarrhea, Distension, Flatus, Hematemesis : Reports: No Symptoms Musculoskeletal: Reports: Neck Pain, Shoulder Pain, Back Pain (His hips neck and lower back at times.), Joint Pain Skin: Reports: Bruising (Wheezes fairly easily.) Neurological: Reports: No Symptoms Psychiatric: Reports: Depression (Controlled with Tranxene.) Hematologic/Lymphatic: Reports: No Symptoms Immunologic: Reports: No Symptoms ED EXAM, GENERAL - Physical Exam Exam: See Below Exam Limited By: No Limitations General Appearance: Alert, WD/WN, No Apparent Distress, Other (Temperature is 36.2 heart rate is 72 in sinus respiratory to 20 with O2 sats 95% room air BP 1 3972) Eye Exam: Bilateral Eye: Normal Inspection, PERRL (Very mild blepharal pallor. No scleral icterus.) Throat/Mouth: Normal Inspection, Normal Lips, Normal Oropharynx Head: Atraumatic, Normocephalic, Other Neck: Normal Inspection (No outward signs of any head or facial trauma.), Non- Tender, Full Range of Motion. No: Carotid Bruit, Lymphadenopathy (L), Lymphadenopathy (R) Respiratory/Chest: No Respiratory Distress, Lungs Clear, Normal Breath Sounds, No Accessory Muscle Use Cardiovascular: Normal Peripheral Pulses, Regular Rate, Rhythm, No Edema, No Gallop, No Murmur, No Rub Peripheral Pulses: 2+: Carotid (L), Carotid (R), Posterior Tibial (L), Posterior Tibial (R), Dorsalis Pedis (L), Dorsalis Pedis (R) GI/Abdominal: Normal Bowel Sounds, Soft, Non-Tender, No Organomegaly, No Abnormal Bruit, No Mass, Pelvis Stable, Splenomegaly (Question whether or not he can feel the tip of his spleen left lower quadrant.) (Male) Exam: No Hernia Back Exam: Normal Inspection, Full Range of Motion. No: CVA Tenderness (L), CVA Tenderness (R) Extremities: Normal Inspection, Pedal Edema (Saud pedal edema both lower extremities slightly worse on the left as compared to the right.), Other (Radiated changes in both knees) Neurological: Alert, Oriented, CN II-XII Intact, Normal Cognition Psychiatric: Normal Affect, Normal Mood Skin Exam: Warm, Dry, Intact, Normal Color, No Rash #1 Interpretation EKG Date: 09/20/20 Time: 14:42 Rhythm: NSR Rate (Beats/Min): 73 (Waves are very difficult to discern. There are also frequent premature junctional contractions) Jolo: Normal P-Wave: Present QRS: Other (Complete left bundle branch block pattern there are Q waves in leads II, III and aVF consider old inferior wall myocardial infarction.) EKG Interpretation Comments: Abnormal ECG Course - Vital Signs Last Recorded V/S: Last Vital Signs Temp 36.2 C 09/20/20 14:50 Pulse 72 09/20/20 14:50 Resp 20 09/20/20 14:50 BP 139/72 09/20/20 14:50 Pulse Ox 95 09/20/20 14:50 - Orders/Labs/Meds Orders: Active Orders 24 hr Category Date Time Status EKG 12 Lead [EKG Documentation Completion] [RC] STAT Care 09/20/20 15:07 Active Dextrose 5%-0.9% NaCl [Dextrose 5%-Normal Saline] 1,000 Med 09/20/20 15:00 Active ml IV ASDIRECTED Medication Orders Dextrose/Sodium Chloride (Dextrose 5%-Normal Saline) 1,000 mls @ 100 mls/hr IV ASDIRECTED DINA Last Admin: 09/20/20 15:20 Dose: 100 mls/hr Documented by: MARCELO Labs: Laboratory Tests 09/20/20 09/20/20 09/20/20 Range/Units 15:14 15:14 15:14 WBC 4.70 (4.23-9.07) K/mm3 RBC 3.11 L (4.63-6.08) M/mm3 Hgb 9.2 L (13.7-17.5) gm/dl Hct 32.3 L (40.1-51.0) % MCV 103.9 H (79.0-92.2) fl MCH 29.6 (25.7-32.2) pg MCHC 28.5 L (32.2-35.5) g/dl RDW Std Deviation 62.9 H (35.1-43.9) fL Plt Count 62 L (163-337) K/mm3 MPV 12.4 H (9.4-12.3) fl Neut % (Auto) 44.9 (34.0-67.9) % Lymph % (Auto) 14.3 L (21.8-53.1) % [place] % (Auto) 35.5 H (5.3-12.2) % Eos % (Auto) 0.6 L (0.8-7.0) Baso % (Auto) 0.2 (0.1-1.2) % Neut # (Auto) 2.11 (1.78-5.38) K/mm3 Lymph # (Auto) 0.67 L (1.32-3.57) K/mm3 [place] # (Auto) 1.67 H (0.30-0.82) K/mm3 Eos # (Auto) 0.03 L (0.04-0.54) K/mm3 Baso # (Auto) 0.01 (0.01-0.08) K/mm3 Manual Slide Review Abnormal smear ESR (0-15) mm/hr PT 12.2 H (9.7-12.0) SECONDS INR 1.14 APTT 31.6 H (21.7-31.4) SECONDS Sodium 140 (136-145) mEq/L Potassium 3.8 (3.5-5.1) mEq/L Chloride 105 (98-107) mEq/L Carbon Dioxide 27 (21-32) mEq/L Anion Gap 11.8 (5-15) BUN 21 H (7-18) mg/dL Creatinine 1.7 H (0.7-1.3) mg/dL Est Cr Clr Drug Dosing 36.38 mL/min Estimated GFR (MDRD) 39 (>60) mL/min BUN/Creatinine Ratio 12.4 L (14-18) Glucose 115 (83-115) mg/dL Uric Acid 8.8 H (3.5-7.2) mg/dL Calcium 8.8 (8.5-10.1) mg/dL Magnesium 1.8 (1.8-2.4) mg/dl Total Bilirubin 0.9 (0.2-1.0) mg/dL AST 46 H (15-37) U/L ALT 52 (16-63) U/L Alkaline Phosphatase 207 H (46-116) U/L CK-MB (CK-2) 1.4 (0-3.6) ng/ml Troponin I < 0.017 (0.00-0.056) ng/mL NT-Pro-B Natriuret Pep (0-450) pg/mL Total Protein 7.8 (6.4-8.2) g/dl Albumin 3.2 L (3.4-5.0) g/dl Globulin 4.6 gm/dL Albumin/Globulin Ratio 0.7 L (1-2) TSH 3rd Generation (0.358-3.74) uIU/mL 09/20/20 09/20/20 09/20/20 Range/Units 15:14 15:14 15:14 WBC (4.23-9.07) K/mm3 RBC (4.63-6.08) M/mm3 Hgb (13.7-17.5) gm/dl Hct (40.1-51.0) % MCV (79.0-92.2) fl MCH (25.7-32.2) pg MCHC (32.2-35.5) g/dl RDW Std Deviation (35.1-43.9) fL Plt Count (163-337) K/mm3 MPV (9.4-12.3) fl Neut % (Auto) (34.0-67.9) % Lymph % (Auto) (21.8-53.1) % [place] % (Auto) (5.3-12.2) % Eos % (Auto) (0.8-7.0) Baso % (Auto) (0.1-1.2) % Neut # (Auto) (1.78-5.38) K/mm3 Lymph # (Auto) (1.32-3.57) K/mm3 [place] # (Auto) (0.30-0.82) K/mm3 Eos # (Auto) (0.04-0.54) K/mm3 Baso # (Auto) (0.01-0.08) K/mm3 Manual Slide Review ESR 51 H (0-15) mm/hr PT (9.7-12.0) SECONDS INR APTT (21.7-31.4) SECONDS Sodium (136-145) mEq/L Potassium (3.5-5.1) mEq/L Chloride (98-107) mEq/L Carbon Dioxide (21-32) mEq/L Anion Gap (5-15) BUN (7-18) mg/dL Creatinine (0.7-1.3) mg/dL Est Cr Clr Drug Dosing mL/min Estimated GFR (MDRD) (>60) mL/min BUN/Creatinine Ratio (14-18) Glucose (83-115) mg/dL Uric Acid (3.5-7.2) mg/dL Calcium (8.5-10.1) mg/dL Magnesium (1.8-2.4) mg/dl Total Bilirubin (0.2-1.0) mg/dL AST (15-37) U/L ALT (16-63) U/L Alkaline Phosphatase (46-116) U/L CK-MB (CK-2) (0-3.6) ng/ml Troponin I (0.00-0.056) ng/mL NT-Pro-B Natriuret Pep 867 H (0-450) pg/mL Total Protein (6.4-8.2) g/dl Albumin (3.4-5.0) g/dl Globulin gm/dL Albumin/Globulin Ratio (1-2) TSH 3rd Generation 0.248 L (0.358-3.74) uIU/mL Meds: Medications Generic Name Dose Route Start Last Admin Trade Name Freq PRN Reason Stop Dose Admin Dextrose/Sodium Chloride 1,000 mls @ 100 mls/hr 09/20/20 15:00 09/20/20 15:20 Dextrose 5%-Normal Saline IV 100 mls/hr ASDIRECTED DINA Administration Discontinued Medications Generic Name Dose Route Start Last Admin Trade Name Freq PRN Reason Stop Dose Admin Ondansetron HCl 4 mg 09/20/20 14:53 Zofran IVPUSH 09/20/20 14:54 ONETIME ONE - Radiology Interpretation Free Text/Narrative:: 80-year-old male presents to the ED complaining of intermittent bouts of central chest discomfort that might last 45 minutes to an hour and a half associated with vagal reflex feeling like he is going to vomit. Not aware of any GERD. He has never vomited. This is a been occurring about every second day the last for 5 days. It occurred earlier today but is now gone. He is currently receiving chemotherapy every 2 weeks intravenously for chronic lymphocytic leukemia. He does not take any nitroglycerin. Patient is receiving Aranesp every 2 weeks to stimulate his bone marrow which may may or not be the culprit in terms of causing his symptoms. Plan he will have a chest x-ray done with routine labs including cardiac markers - Re-Assessments/Exams Free Text/Narrative Re-Assessment/Exam: 09/20/20 15:44 chest x-ray done portably reveals the lungs to remain unremarkable with no consolidation. There is no pleural effusion no pneumoth orax. Minimally enlarged cardio pericardial silhouette. Probably old deformity posterior right seventh rib. 09/20/20 16:08 Labs reveal a normal white count at 4.70. Differential is 45% neutrophils and 35.5% monocytes which is very high. Lymphocytes are reduced at 14.3% hemoglobin is 9.2 with hematocrit of 32.3. MCV is elevated at 103.9. Platelets are low at 62,000. PT is 12.2 with an INR of 1.14. PTT is 31.6. Sodium 140 with a potassium of 3.8 chloride 105 with a bicarb of 27. Anion gap is 11.8. BUN is 21 with a creatinine of 1.7. GFR is 39 I stage IIIb renal insufficiency glucose is 115 uric acid is elevated at 8.8. Calcium is 8.8 magnesium is 1.8. Bilirubin is 0.9 AST slightly elevated at 46 ALT normal at 52. Alk phos today is elevated at 207. CK-MB fraction is 1.4 troponin I is less than 0.017. BNP is elevated at 867. Total protein 7.8 with an albumin fraction of 3.2. TSH is normal at 0.248 09/20/20 16:16 reassured of the above findings that there is no heart related illness. What is he experiencing is vasovagal reflex with near vomiting. This is likely set off by some of his medications. Patient reassured and he will be discharged home in the care of his . 09/20/20 16:48Sed rate is 51. PT is 12.2 with an INR of 1.14 PTT is 31.6. Departure - Departure Time of Disposition: 16:16 Disposition: Home, Self-Care 01 Reason for Transfer *Q: Other Condition: Fair Clinical Impression: Non-cardiac chest pain, Vasovagal symptom Prescriptions: Ondansetron [Zofran] 4 mg BUCCAL Q6H PRN #8 tab PRN Reason: nausea or vomiting Instructions: Chest Wall Pain, [id number] Referrals: Ed Mcgill MD [Primary Care Provider] - Forms: ED Department Discharge Additional Instructions: Ealuation in the emergency room today in regards to recurrent bouts of central chest pain associated with near vomiting events. Chest x-ray proved to be completely normal heart tracing was unchanged with no signs of heart attack. Lab test also revealed no evidence of heart related illness. There is very minimal congestive heart failure in the lab test. The history suggest that what you are spearing is called a vasovagal reflex. The vagus nerve runs from throat down to the stomach and controls movement of the stomach and food pipe. If it becomes overactive it causes pressure to build up in the stomach and chest with spasm of the food pipe which can mimic heart attack-like pain. The difference is that is associated with like he said drooling spitting up like you are almost going to throw up. This is likely secondary to medications being utilized to treat chronic lymphocytic leukemia. It can occur at any time and for no good reason. There is no evidence of any heart related illness. I have written a prescription for Zofran tablets which can be taken under the tongue at any time 6 hours apart if needed for these events and it usually works very quickly within 10 to 15 minutes to nullify the vasovagal event. Sepsis Event Note (ED) - Evaluation Sepsis Screening Result: No Definite Risk - Focused Exam Vital Signs: Vital Signs Temp Pulse Resp BP Pulse Ox 09/20/20 14:50 36.2 C 72 20 139/72 95 - My Orders Last 24 Hours: My Active Orders 09/20/20 15:00 Dextrose 5%-0.9% NaCl [Dextrose 5%-Normal Saline] 1,000 ml IV ASDIRECTED 09/20/20 15:07 EKG 12 Lead [EKG Documentation Completion] [RC] STAT - Assessment/Plan Last 24 Hours: My Active Orders 09/20/20 15:00 Dextrose 5%-0.9% NaCl [Dextrose 5%-Normal Saline] 1,000 ml IV ASDIRECTED 09/20/20 15:07 EKG 12 Lead [EKG Documentation Completion] [RC] STAT
[2020-09-20] MEDS ORDERED: Dextrose 5%-0.9% NaCl 1,000 ML IV SCH (15:00)
--- NOTE | 2020-09-20 15:43 | CR ---
PROCEDURE INFORMATION: Exam: XR Chest, 1 View Exam date and time: 09/20/2020 3:10 PM Age: 80 years old Clinical indication: Other: Recurrent bouts of central chest pain. TECHNIQUE: Imaging protocol: XR of the chest Views: 1 view. COMPARISON: CR Chest 1V Frontal 05/28/2020 1:06 PM FINDINGS: Lungs: Unremarkable. No consolidation. Pleural space: Unremarkable. No pleural effusion. No pneumothorax. Heart/Mediastinum: Minimally enlarged cardiopericardial silhouette. Bones/joints: Probable old deformity posterior right 7th rib. IMPRESSION: No acute process Thank you for allowing us to participate in the care of your patient. Dictated and Authenticated by: Issa Irvin MD 09/20/2020 4:40 PM Central Time ([place] & [place]) [facility]
== END 2020-09-20 16:35 | disposition home or self-care (01) ==
LOC: JD.ED 14:33
DX: R07.89 Other chest pain (principal); J44.9 Chronic obstructive pulmonary disease, unspecified; I10 Essential (primary) hypertension; K21.9 Gastro-esophageal reflux disease without esophagitis; M19.90 Unspecified osteoarthritis, unspecified site; F41.9 Anxiety disorder, unspecified; F32.9 Major depressive disorder, single episode, unspecified; E03.9 Hypothyroidism, unspecified; I44.7 Left bundle-branch block, unspecified; I25.2 Old myocardial infarction; Z88.0 Allergy status to penicillin; Z88.8 Allergy status to other drugs, medicaments and biological substances; Z88.2 Allergy status to sulfonamides; Z79.899 Other long term (current) drug therapy; Z79.82 Long term (current) use of aspirin
CPT/HCPCS: 36415; 71045; 80053; 82553; 83735; 83880; 84443; 84484; 84550; 85025; 85610; 85652; 85730; 93005; 99285; J7042; 93010; 99284

== ENCOUNTER 2020-09-27 09:59 | Emergency (ER) | payer MEDICARE, OTHER ==
[2020-09-27] MEDS: Dextrose 5%-0.9% NaCl 1,000 ML IV SCH ×2 (10:28→12:23)
--- NOTE | 2020-09-27 10:33 | EDM.PDOC ---
ED HPI GENERAL MEDICAL PROBLEM - General Chief Complaint: General Stated Complaint: UNABLE TO WALK AND BLEEDING FROM MOUTH Time Seen by Provider: 09/27/20 10:18 Source of Information: Reports: Patient History Limitations: Reports: No Limitations - History of Present Illness INITIAL COMMENTS - FREE TEXT/NARRATIVE: 80-year-old male presents to the ED with generalized weakness and inability to walk. 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 He receives Aranesp to boost his white count and platelet count every 2 weeks and he is due for this tomorrow. There is some suggestion that he and his both appreciate some bleeding from his mouth this morning. Neither I or the nurses were able to identify any source of active bleeding at this time. He denies any trauma to the area. Clinically he is warm to palpation. Midst to fever and chills starting yesterday. He has not yet eaten today. Does have a mild cough of white sputum. No known exposure to Covid but they have been traveling before between clinics quite frequently. Denies any vomiting or diarrhea. Decreased appetite for the last 2 and may be 3 days. Urine is noted to be quite dark in color. Denies any falls at home. His ECG and monitor shows a sinus tachycardia at 140/min suggesting significant volume depletion. 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 Denies: Activity, Exercise, Lifting, Sick Contact, Trauma Associated Symptoms: Reports: Cough, cough w sputum, Fever/Chills, Loss of Appetite, Malaise (Sputum), Shortness of Breath, Weakness. Denies: Confusion, Chest Pain, Diaphoresis (Likely is febrile.), Headaches, Nausea/Vomiting, Rash, Seizure, Syncope Treatments GRADER PATROL: Reports: Other (see below) (Only his regular medicines.) - Related Data Allergies Allergy/AdvReac Type Severity Reaction Status Date / Time Penicillins Allergy Unknown Cannot Verified 09/27/20 12:05 Remember levofloxacin [From Levaquin] Allergy Edema Verified 09/27/20 10:10 Sulfa (Sulfonamide Allergy Hives Verified 09/27/20 10:10 Antibiotics) Home Meds: Home Meds Calcium Carbonate/Vitamin D3 [Caltrate-600 with Vit D Tab] 1 each PO DAILY 05/12/18 [History] Cholecalciferol (Vitamin D3) [Vitamin D3] 1,000 unit PO DAILY 05/12/18 [History] Clorazepate Dipotassium [Tranxene T-Tab] 7.5 mg PO TID PRN 05/12/18 [History] Felodipine [Felodipine ER] 10 mg PO DAILY 05/12/18 [History] Glucosam/Chondr/Collagn/Hyalur [Glucosamine & Chondroitin Cap] 1 each PO DAILY 05/12/18 [History] Levothyroxine 175 mcg PO ACBRK 05/12/18 [History] Omeprazole 20 mg PO BID 05/12/18 [History] Tamsulosin [Flomax] 0.4 mg PO BEDTIME 12/12/18 [History] Vitamin B6-pyridOXINE 100 mg PO DAILY 12/12/18 [History] Aspirin [Ecotrin EC] 1 tab PO DAILY 07/22/19 [History] Cyanocobalamin (Vitamin B-12) [Vitamin B-12] 1 tab PO DAILY 07/22/19 [History] Lactobacillus 3/Fos/Pantethine [Probiotic & Acidophilus] 1 cap PO DAILY 07/22/19 [History] PARoxetine HCl [Paxil] 60 mg PO DAILY 07/22/19 [History] lisinopriL [Prinivil] 10 mg PO BID 07/22/19 [History] Ondansetron [Zofran] 4 mg BUCCAL Q6H PRN #8 tab 09/20/20 [Rx] Pumpkin Seed Extract/Soy Germ [Azo Bladder Control Capsule] 300 mg PO DAILY 09/27/20 [History] Past Medical History HEENT History: Reports: Allergic Rhinitis, Hard of Hearing, Impaired Vision (Does wear glasses.) Cardiovascular History: Reports: Hypertension, PA, SOB on Exertion Respiratory History: Reports: COPD, Sleep Apnea Gastrointestinal History: Reports: GERD Other Gastrointestinal History: inconclusive for crohns disease. And apparently did develop C. difficile enteritis after IV antibiotic therapy in the past. Genitourinary History: Reports: Other (See Below) Other Genitourinary History: prostatalgia Musculoskeletal History: Reports: Arthritis, Osteoarthritis, Other (See Below) Other Musculoskeletal History: compressed lower disc. 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 Not clear whether this is gout or not. Neurological History: Reports: CVA Psychiatric History: Reports: Anxiety, Depression Endocrine/Metabolic History: Reports: Hypothyroidism Hematologic History: Reports: Anemia, Iron Deficiency, Other (See Below) Other Hematologic History: low hemoglobin and platelets--has been investigated by Dr. Spence business intelligence administrator in [place] and in fact has had a bone marrow biopsy with no positive findings. Therefore the suggestion is whether or not he has a chronic infectious process causing bone marrow suppression versus medication causing bone marrow suppression. Many of his medications were recently discontinued in the believe that one of them may be causing bone marrow suppression and chronic thrombocytopenia and anemia. Immunologic History: Reports: None Oncologic (Cancer) History: Reports: Other (See Below) Other Oncologic History: Being treated for chronic lymphocytic leukemia for the last 2 years. Dermatologic History: Reports: None - Infectious Disease History Infectious Disease History: Reports: None - Past Surgical History Head Surgeries/Procedures: Reports: None Cardiovascular Surgical History: Reports: Carotid Endarterectomy, Coronary Artery Stent, Percutaneous Transluminal Angioplasty GI Surgical History: Reports: Colonoscopy Musculoskeletal Surgical History: Reports: Other (See Below) Social & Family History - Family History Family Medical History: No Pertinent Family History - Tobacco Use Tobacco Use Status *Q: Unknown Ever Used Tobacco - Caffeine Use Caffeine Use: Reports: None - Recreational Drug Use Recreational Drug Use: No - Living Situation & Occupation Living situation: Reports: Occupation: Retired ED ROS GENERAL - Review of Systems Review Of Systems: See Below Constitutional: Reports: Fever, Chills, Malaise, Fatigue HEENT: Reports: Glasses, Other Respiratory: Reports: Shortness of Breath (Part of bleeding from the mouth a day but I cannot see any source of bleeding.), Cough, Sputum (White sputum). Denies: Wheezing, Pleuritic Chest Pain Cardiovascular: Reports: Blood Pressure Problem, Dyspnea on Exertion (Always has a little bit around his ankles), Edema. Denies: Claudication, Lightheadedness, Orthopnea (Beds for hypertension), Palpitations Endocrine: Reports: Fatigue GI/Abdominal: Reports: Anorexia. Denies: Abdominal Pain, Black Stool, Bloody Stool, Difficulty Swallowing, Distension, Flatus, Hematemesis, Hematochezia, Melena, Mucous in Stool : Reports: Frequency, Other (Nocturia usually at least twice. Known BPH. No history of urinary retention.) Musculoskeletal: Reports: Neck Pain, Shoulder Pain, Back Pain (Knees hips), Joint Pain Skin: Reports: Dryness Neurological: Reports: Dizziness, Difficulty Walking, Weakness. Denies: Tremors, Trouble Speaking (Able to walk at present time), Change in Speech Psychiatric: Reports: Depression Hematologic/Lymphatic: Reports: Anemia, Easy Bleeding, Other (History of thrombocytopenia and leukopenia from chemotherapy) Immunologic: Reports: Other (Considered immune no compromised due to receiving chemotherapy for chronic lymphocytic leukemia) ED EXAM, GENERAL - Physical Exam Exam: See Below Exam Limited By: Physical Impairment General Appearance: Alert, Moderate Distress (Patient obviously does not feel good. He is warm to palpation. He is mildly lethargic. Not nearly as talkative as his norm.), Other (Initial O2 sats were 88% but on 2 L he is 96%.) Eye Exam: Bilateral Eye: Normal Inspection, PERRL (Mild blepharal pallor. No scleral icterus.) Ears: Normal TMs, Hearing Loss (He does wear hearing aid in both ears.), Other Throat/Mouth: Other (Tongue is very dry and coated. Again there is no fresh blood in the oropharynx at this point time it is unclear where any bleeding would have come from. He denies coughing it up. I wonder if it came from one of his teeth. He denies any blood with brushing his teeth.) Head: Atraumatic, Normocephalic, Other (No outward signs of any head or facial trauma.) Neck: Normal Inspection, Limited Range of Motion (Crepitus on lateral rotation and flexion.), Tender Lateral. No: Full Range of Motion, Carotid Bruit, Lymphadenopathy (L), Lymphadenopathy (R) Respiratory/Chest: Respiratory Distress, Decreased Breath Sounds (Decreased breath sounds to the lower for 40% of lung knapp bilaterally.), Rales (Moderate tachypnea at rest. No rales appreciated both lower lung knapp.), Other (Ocular venous pulsations are not elevated.). No: Lungs Clear, Normal Breath Sounds, Wheezing Cardiovascular: No Gallop, No JVD, No Murmur, No Rub, Tachycardia (Sinus tachycardia of 139 to 140/min on the monitor. This is confirmed by ECG). No: Normal Peripheral Pulses Peripheral Pulses: 1+: Posterior Tibial (L), Posterior Tibial (R), Dorsalis Pedis (L), Dorsalis Pedis (R), 2+: Carotid (L), Carotid (R) GI/Abdominal: Normal Bowel Sounds, Soft, Non-Tender, No Organomegaly, No Mass, Pelvis Stable, Splenomegaly (Questionable whether I can feel the tip of his spleen on the left side.) Back Exam: Normal Inspection, Vertebral Tenderness. No: CVA Tenderness (L), CVA Tenderness (R) (Lumbar spine) Extremities: Non-Tender, Pedal Edema, Other (Evidence of osteoarthritic changes both knees very limited in internal and external rotation of both hips.) Neurological: Alert, Oriented (Trace edema both lower extremities around the ankles.), CN II-XII Intact, Normal Cognition. No: Normal Gait Psychiatric: Flat Affect Skin Exam: Warm, Dry, Intact, Normal Color, No Rash #1 Interpretation EKG Date: 09/27/20 Time: 10:12 Rhythm: Other (Sinus tachycardia) Rate (Beats/Min): 140 [place]: Normal P-Wave: Enlarged (Sitter right atrial hypertrophy. First-degree AV block.) QRS: Other (Incomplete left bundle branch block pattern. Patient has Q waves in leads II, III and aVF compared with old inferior wall myocardial infarction) ST-T: Other (Diffuse early repolarization pattern due to rate) QT: Prolonged (Moderately prolonged) EKG Interpretation Comments: Abnormal ECG Course - Vital Signs Last Recorded V/S: Last Vital Signs Temp 37.8 C 09/27/20 15:48 Pulse 130 H 09/27/20 15:48 Resp 24 H 09/27/20 15:48 BP 140/65 09/27/20 15:48 Pulse Ox 95 09/27/20 15:48 - Orders/Labs/Meds Orders: Active Orders 24 hr Category Date Time Status CULTURE BLOOD [BC] Stat Lab 09/27/20 10:58 Received CULTURE BLOOD [BC] Stat Lab 09/27/20 11:09 Received Dextrose 5%-0.9% NaCl [Dextrose 5%-Normal Saline] 1,000 Med 09/27/20 10:30 Active ml IV ASDIRECTED Dextrose 5%-0.9% NaCl [Dextrose 5%-Normal Saline] 1,000 Med 09/27/20 12:00 Active ml IV ASDIRECTED Blood Culture x2 Reflex Set [OM.PC] Stat Oth 09/27/20 10:21 Ordered Medication Orders Dextrose/Sodium Chloride (Dextrose 5%-Normal Saline) 1,000 mls @ 999 mls/hr IV ASDIRECTED DINA Last Infusion: 09/27/20 13:24 Dose: 999 mls/hr Documented by: Admin: 09/27/20 12:23 Dose: 999 mls/hr Documented by: Infusion: 09/27/20 11:29 Dose: 999 mls/hr Documented by: Admin: 09/27/20 10:28 Dose: 999 mls/hr Documented by: ADEN Dextrose/Sodium Chloride (Dextrose 5%-Normal Saline) 1,000 mls @ 500 mls/hr IV ASDIRECTED [facility] Labs: Laboratory Tests 09/27/20 09/27/20 09/27/20 Range/Units 10:10 10:10 10:10 WBC 5.24 (4.23-9.07) K/mm3 RBC 3.46 L (4.63-6.08) M/mm3 Hgb 10.5 L (13.7-17.5) gm/dl Hct 35.0 L (40.1-51.0) % MCV 101.2 H (79.0-92.2) fl MCH 30.3 (25.7-32.2) pg MCHC 30.0 L (32.2-35.5) g/dl RDW Std Deviation 61.9 H (35.1-43.9) fL Plt Count 45 L (163-337) K/mm3 MPV TNP Neutrophils % (Manual) 62 H (40-60) % Band Neutrophils % 0 (0-10) % Lymphocytes % (Manual) 7 L (20-40) % Atypical Lymphs % 0 % Monocytes % (Manual) 30 H (2-10) % Eosinophils % (Manual) 1 (0.8-7.0) % Basophils % (Manual) 0 L (0.2-1.2) Platelet Estimate Decreased Poikilocytosis 1+ slight Anisocytosis 2+ moderate RBC Morph Comment Abnormal ESR (0-15) mm/hr PT 12.4 H (9.7-12.0) SECONDS INR 1.16 APTT 27.7 (21.7-31.4) SECONDS D-Dimer, Quantitative (0.19-0.50) mg/L Sodium 140 (136-145) mEq/L Potassium 3.9 (3.5-5.1) mEq/L Chloride 104 (98-107) mEq/L Carbon Dioxide 26 (21-32) mEq/L Anion Gap 13.9 (5-15) BUN 25 H (7-18) mg/dL Creatinine 2.0 H (0.7-1.3) mg/dL Est Cr Clr Drug Dosing 32.87 mL/min Estimated GFR (MDRD) 32 (>60) mL/min BUN/Creatinine Ratio 12.5 L (14-18) Glucose 101 (83-115) mg/dL Lactic Acid (0.4-2.0) mmol/L Calcium 8.9 (8.5-10.1) mg/dL Magnesium 1.4 L (1.8-2.4) mg/dl Ferritin (26-388) ng/ml Total Bilirubin 3.7 H (0.2-1.0) mg/dL GGT (15-85) U/L AST 226 H (15-37) U/L ALT 156 H (16-63) U/L Alkaline Phosphatase 370 H (46-116) U/L Lactate Dehydrogenase 341 H (85-227) U/L CK-MB (CK-2) 1.1 (0-3.6) ng/ml Troponin I 0.129 H* (0.00-0.056) ng/mL C-Reactive Protein 2.2 H* (<1.0) mg/dL NT-Pro-B Natriuret Pep (0-450) pg/mL Total Protein 8.1 (6.4-8.2) g/dl Albumin 3.3 L (3.4-5.0) g/dl Globulin 4.8 gm/dL Albumin/Globulin Ratio 0.7 L (1-2) Lipase (73-393) U/L Urine Color (Yellow) Urine Appearance (Clear) Urine pH (5.0-8.0) Ur Specific [place] (1.005-1.030) Urine Protein (Negative) Urine Glucose (UA) (Negative) Urine Ketones (Negative) Urine Occult Blood (Negative) Urine Nitrite (Negative) Urine Bilirubin (Negative) Urine Urobilinogen (0.2-1.0) Ur Leukocyte Esterase (Negative) Urine RBC (0-5) /hpf Urine WBC (0-5) /hpf Ur Squamous Epith Cells (0-5) /hpf Amorphous Sediment (NOT SEEN) /hpf Urine Bacteria (FEW) /hpf Urine Mucus (FEW) /hpf SARS-CoV-2 RNA (ROXANNE) (NEGATIVE) 09/27/20 09/27/20 09/27/20 Range/Units 10:10 10:10 10:10 WBC (4.23-9.07) K/mm3 RBC (4.63-6.08) M/mm3 Hgb (13.7-17.5) gm/dl Hct (40.1-51.0) % MCV (79.0-92.2) fl MCH (25.7-32.2) pg MCHC (32.2-35.5) g/dl RDW Std Deviation (35.1-43.9) fL Plt Count (163-337) K/mm3 MPV Neutrophils % (Manual) (40-60) % Band Neutrophils % (0-10) % Lymphocytes % (Manual) (20-40) % Atypical Lymphs % % Monocytes % (Manual) (2-10) % Eosinophils % (Manual) (0.8-7.0) % Basophils % (Manual) (0.2-1.2) Platelet Estimate Poikilocytosis Anisocytosis RBC Morph Comment ESR 41 H (0-15) mm/hr PT (9.7-12.0) SECONDS INR APTT (21.7-31.4) SECONDS D-Dimer, Quantitative 4.32 H (0.19-0.50) mg/L Sodium (136-145) mEq/L Potassium (3.5-5.1) mEq/L Chloride (98-107) mEq/L Carbon Dioxide (21-32) mEq/L Anion Gap (5-15) BUN (7-18) mg/dL Creatinine (0.7-1.3) mg/dL Est Cr Clr Drug Dosing mL/min Estimated GFR (MDRD) (>60) mL/min BUN/Creatinine Ratio (14-18) Glucose (83-115) mg/dL Lactic Acid (0.4-2.0) mmol/L Calcium (8.5-10.1) mg/dL Magnesium (1.8-2.4) mg/dl Ferritin 400 H (26-388) ng/ml Total Bilirubin (0.2-1.0) mg/dL GGT (15-85) U/L AST (15-37) U/L ALT (16-63) U/L Alkaline Phosphatase (46-116) U/L Lactate Dehydrogenase (85-227) U/L CK-MB (CK-2) (0-3.6) ng/ml Troponin I (0.00-0.056) ng/mL C-Reactive Protein (<1.0) mg/dL NT-Pro-B Natriuret Pep (0-450) pg/mL Total Protein (6.4-8.2) g/dl Albumin (3.4-5.0) g/dl Globulin gm/dL Albumin/Globulin Ratio (1-2) Lipase (73-393) U/L Urine Color (Yellow) Urine Appearance (Clear) Urine pH (5.0-8.0) Ur Specific [place] (1.005-1.030) Urine Protein (Negative) Urine Glucose (UA) (Negative) Urine Ketones (Negative) Urine Occult Blood (Negative) Urine Nitrite (Negative) Urine Bilirubin (Negative) Urine Urobilinogen (0.2-1.0) Ur Leukocyte Esterase (Negative) Urine RBC (0-5) /hpf Urine WBC (0-5) /hpf Ur Squamous Epith Cells (0-5) /hpf Amorphous Sediment (NOT SEEN) /hpf Urine Bacteria (FEW) /hpf Urine Mucus (FEW) /hpf SARS-CoV-2 RNA (ROXANNE) (NEGATIVE) 09/27/20 09/27/20 09/27/20 Range/Units 10:10 10:10 10:10 WBC (4.23-9.07) K/mm3 RBC (4.63-6.08) M/mm3 Hgb (13.7-17.5) gm/dl Hct (40.1-51.0) % MCV (79.0-92.2) fl MCH (25.7-32.2) pg MCHC (32.2-35.5) g/dl RDW Std Deviation (35.1-43.9) fL Plt Count (163-337) K/mm3 MPV Neutrophils % (Manual) (40-60) % Band Neutrophils % (0-10) % Lymphocytes % (Manual) (20-40) % Atypical Lymphs % % Monocytes % (Manual) (2-10) % Eosinophils % (Manual) (0.8-7.0) % Basophils % (Manual) (0.2-1.2) Platelet Estimate Poikilocytosis Anisocytosis RBC Morph Comment ESR (0-15) mm/hr PT (9.7-12.0) SECONDS INR APTT (21.7-31.4) SECONDS D-Dimer, Quantitative (0.19-0.50) mg/L Sodium (136-145) mEq/L Potassium (3.5-5.1) mEq/L Chloride (98-107) mEq/L Carbon Dioxide (21-32) mEq/L Anion Gap (5-15) BUN (7-18) mg/dL Creatinine (0.7-1.3) mg/dL Est Cr Clr Drug Dosing mL/min Estimated GFR (MDRD) (>60) mL/min BUN/Creatinine Ratio (14-18) Glucose (83-115) mg/dL Lactic Acid (0.4-2.0) mmol/L Calcium (8.5-10.1) mg/dL Magnesium (1.8-2.4) mg/dl Ferritin (26-388) ng/ml Total Bilirubin (0.2-1.0) mg/dL GGT 358 H (15-85) U/L AST (15-37) U/L ALT (16-63) U/L Alkaline Phosphatase (46-116) U/L Lactate Dehydrogenase (85-227) U/L CK-MB (CK-2) (0-3.6) ng/ml Troponin I (0.00-0.056) ng/mL C-Reactive Protein (<1.0) mg/dL NT-Pro-B Natriuret Pep 2360 H (0-450) pg/mL Total Protein (6.4-8.2) g/dl Albumin (3.4-5.0) g/dl Globulin gm/dL Albumin/Globulin Ratio (1-2) Lipase 957 H (73-393) U/L Urine Color (Yellow) Urine Appearance (Clear) Urine pH (5.0-8.0) Ur Specific [place] (1.005-1.030) Urine Protein (Negative) Urine Glucose (UA) (Negative) Urine Ketones (Negative) Urine Occult Blood (Negative) Urine Nitrite (Negative) Urine Bilirubin (Negative) Urine Urobilinogen (0.2-1.0) Ur Leukocyte Esterase (Negative) Urine RBC (0-5) /hpf Urine WBC (0-5) /hpf Ur Squamous Epith Cells (0-5) /hpf Amorphous Sediment (NOT SEEN) /hpf Urine Bacteria (FEW) /hpf Urine Mucus (FEW) /hpf SARS-CoV-2 RNA (ROXANNE) (NEGATIVE) 09/27/20 09/27/20 09/27/20 Range/Units 10:35 10:58 12:30 WBC (4.23-9.07) K/mm3 RBC (4.63-6.08) M/mm3 Hgb (13.7-17.5) gm/dl Hct (40.1-51.0) % MCV (79.0-92.2) fl MCH (25.7-32.2) pg MCHC (32.2-35.5) g/dl RDW Std Deviation (35.1-43.9) fL Plt Count (163-337) K/mm3 MPV Neutrophils % (Manual) (40-60) % Band Neutrophils % (0-10) % Lymphocytes % (Manual) (20-40) % Atypical Lymphs % % Monocytes % (Manual) (2-10) % Eosinophils % (Manual) (0.8-7.0) % Basophils % (Manual) (0.2-1.2) Platelet Estimate Poikilocytosis Anisocytosis RBC Morph Comment ESR (0-15) mm/hr PT (9.7-12.0) SECONDS INR APTT (21.7-31.4) SECONDS D-Dimer, Quantitative (0.19-0.50) mg/L Sodium (136-145) mEq/L Potassium (3.5-5.1) mEq/L Chloride (98-107) mEq/L Carbon Dioxide (21-32) mEq/L Anion Gap (5-15) BUN (7-18) mg/dL Creatinine (0.7-1.3) mg/dL Est Cr Clr Drug Dosing mL/min Estimated GFR (MDRD) (>60) mL/min BUN/Creatinine Ratio (14-18) Glucose (83-115) mg/dL Lactic Acid 3.1 H* (0.4-2.0) mmol/L Calcium (8.5-10.1) mg/dL Magnesium (1.8-2.4) mg/dl Ferritin (26-388) ng/ml Total Bilirubin (0.2-1.0) mg/dL GGT (15-85) U/L AST (15-37) U/L ALT (16-63) U/L Alkaline Phosphatase (46-116) U/L Lactate Dehydrogenase (85-227) U/L CK-MB (CK-2) (0-3.6) ng/ml Troponin I (0.00-0.056) ng/mL C-Reactive Protein (<1.0) mg/dL NT-Pro-B Natriuret Pep (0-450) pg/mL Total Protein (6.4-8.2) g/dl Albumin (3.4-5.0) g/dl Globulin gm/dL Albumin/Globulin Ratio (1-2) Lipase (73-393) U/L Urine Color Yellow (Yellow) Urine Appearance Clear (Clear) Urine pH 6.0 (5.0-8.0) Ur Specific [place] 1.025 (1.005-1.030) Urine Protein 1+ H (Negative) Urine Glucose (UA) Negative (Negative) Urine Ketones Negative (Negative) Urine Occult Blood 2+ H (Negative) Urine Nitrite Negative (Negative) Urine Bilirubin 2+ H (Negative) Urine Urobilinogen >=8.0 H (0.2-1.0) Ur Leukocyte Esterase Negative (Negative) Urine RBC 10-20 H (0-5) /hpf Urine WBC 0-5 (0-5) /hpf Ur Squamous Epith Cells 0-5 (0-5) /hpf Amorphous Sediment Moderate H (NOT SEEN) /hpf Urine Bacteria Few (FEW) /hpf Urine Mucus Few (FEW) /hpf SARS-CoV-2 RNA (ROXANNE) Negative (NEGATIVE) Meds: Medications Generic Name Dose Route Start Last Admin Trade Name Freq PRN Reason Stop Dose Admin Dextrose/Sodium Chloride 1,000 mls @ 999 mls/hr 09/27/20 10:30 09/27/20 13:24 Dextrose 5%-Normal Saline IV Infused ASDIRECTED DINA Infusion Dextrose/Sodium Chloride 1,000 mls @ 500 mls/hr 09/27/20 12:00 Dextrose 5%-Normal Saline IV ASDIRECTED DINA Discontinued Medications Generic Name Dose Route Start Last Admin Trade Name Sonia PRN Reason Stop Dose Admin Acetaminophen 650 mg 09/27/20 11:01 09/27/20 12:21 Tylenol PO 09/27/20 11:02 650 mg ONETIME ONE Administration Acetaminophen Confirm 09/27/20 12:16 09/27/20 12:22 Tylenol Administered 09/27/20 12:17 Not Given Dose 650 mg .ROUTE .STK-MED ONE Hydromorphone HCl 0.5 mg 09/27/20 13:52 09/27/20 13:57 Dilaudid IVPUSH 09/27/20 13:53 0.5 mg ONETIME ONE Administration Cefepime HCl 2 gm/ Premix 50 mls @ 100 mls/hr 09/27/20 11:53 09/27/20 12:19 IV 09/27/20 12:22 100 mls/hr ONETIME ONE Administration Magnesium Sulfate 4 gm/ Premix 50 mls @ 12.5 mls/hr 09/27/20 11:54 09/27/20 12:24 IV 09/27/20 15:53 12.5 mls/hr ONETIME ONE Administration Vancomycin HCl 1.75 gm/ Sodium 500 mls @ 250 mls/hr 09/27/20 13:36 09/27/20 14:57 Chloride IV 09/27/20 13:37 250 mls/hr ONETIME ONE Administration Metronidazole 500 mg/ Premix 100 mls @ 100 mls/hr 09/27/20 13:40 09/27/20 13:49 IV 09/27/20 14:39 100 mls/hr ONETIME ONE Administration Ibuprofen 600 mg 09/27/20 13:36 09/27/20 13:43 Motrin PO 09/27/20 13:37 600 mg ONETIME ONE Administration Ondansetron HCl 4 mg 09/27/20 13:52 09/27/20 13:57 Zofran IVPUSH 09/27/20 13:53 4 mg ONETIME ONE Administration - Radiology Interpretation Free Text/Narrative:: 80-year-old male presents to the ED with generalized weakness and inability to walk. 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 Unclear when he last received his last dose of chemo. He receives Aranesp every 2 weekly and is due for this tomorrow to boost his bone marrow particular his platelets. He reports that he had some spontaneous bright red bleeding per her this morning but I could not identify any obvious source of this. Exam the patient is febrile and admits to chills for the last couple of days. Possible exposure to COVID-19. Does have a mild cough which he states producing white phlegm. Denies any dysuria urgency or frequency. Plan septic work-up will be done. IV will be D5 normal saline at open as he appears to be very dry with a sinus tachycardia of 140/min. Covid screen will be obtained. - Re-Assessments/Exams Free Text/Narrative Re-Assessment/Exam: 09/27/20 11:22 chest x-ray reveals clear lung kn[place]. Prominence of the right pulmonary artery appreciated. Very slight cardiomegaly noted slight tortuous thoracic aorta. No pneumonia or pneumothorax 09/27/20 11:32 White count is normal at 5.24. The differential shows 62% neutrophils with no bands cells reported. 30% monocytes noted .Hemoglobin is 10.5 with hematocrit of 35.0 MCV is slightly elevated 101.2. Platelet count is low at 45,000. Sed rate is 41. PT is 12.4 with an INR of 1.16. PTT is 27.7 D- dimer is elevated at 4.32. Sodium 140 with a potassium of 3.9 chloride 104 the bicarb of 26. Anion gap is 13.9. BUN is 25 slightly elevated creatinine is 2.0 with a GFR of 32 a stage IIIb renal insufficiency glucose 101. Calcium 8.9 magnesium low at 1.4. Total bilirubin is elevated at 3.7 with an AST of 226 and an ALT of 156. Alkaline phosphatase elevated at 370. LDH is elevated at 341. CK-MB is 1.1 troponin I is elevated at 0.129 C-reactive protein 2.2 BNP 2360. Total protein 8.1 with an albumin fraction of 3.3. 09/27/20 11:38 Patient reports he does feel better with oxygen on. I will hold off on antibiotic therapy until I see his COVID-19 screen. 09/27/20 11:52 Lactic acid has returned elevated at 3.1. And therefore going to start IV antibiotic cefepime 2 g IV 09/27/20 11:57 He has completed his first liter of IV fluids. Second liter will be D5 normal saline at 500 mils per hour. He will also be receiving fluids from his cefepime and magnesium supplementation. COVID-19 screen is negative. When I went to check on the patient he had nearly slid out of his bed. He is mildly confused and disoriented. Warm to palpation. He will require admission to the hospital and at present we are on diversion. Dr. Erazo is his oncologist in [place]. Seeing whether or not he may have biliary tree obstruction. The GGT is not yet back. I am going to order CT of the abdomen and pelvis with out any contrast since his creatinine is greater than 2.0 he cannot tolerate IV contrast and oral contrast will not have any value in this case. 09/27/20 12:30: GGT did come back elevated at 358 which is suggestive of biliary tree obstruction. CT scan of the abdomen pelvis will be done. There is a bed available at [facility] in [place] for a non-Covid patient. Dr. Fallon the hospitalist who will be assuming care has requested that we do a CT chest as well .This will be ordered at this time Free Text/Narrative Re-Assessment/Exam: 09/27/20 13:05 CT of the of the chest has been completed without IV contrast. The lungs are hyperinflated consistent with underlying small airways disease. Atelectatic changes noted within both lung bases without any focal pneumonia. Trace right-sided pleural effusion noted. Heart shows mild atherosclerotic calcification of the coronary arteries. Aorta appears unremarkable with no aortic aneurysm. Lymph nodes there is no evidence of mediastinal or hilar lymphadenopathy no axillary lymphadenopathy. Bones and joints show mild compression deformities of thoracic 7, thoracic 8, and thoracic 9 vertebra ages are indeterminate. CT of the abdomen and pelvis performed without contrast as well. Small hiatal hernia appreciated. Liver appears to be slightly enlarged with fatty infiltration. Gallbladder contracted and does not appear to contain any acute calcified gallstones. Peripancreatic fat stranding and pancreatic ductal dilatation appreciated. Findings are consistent with acute pancreatitis. Moderate mild to moderate splenomegaly appreciated. Adrenal glands are normal with no mass. Both kidneys are very atrophic there are small stones embedded within both renal parenchyma. There is a 3.26 cm cystic lesion noted parapelvic region on the left kidney. Adrenal glands normal. Increased stool throughout portions of the colon particularly in the rectum. No obvious intra-abdominal source for infection identified. There are several diverticuli of the large bowel but no signs of acute diverticulitis. Thickening of the harmon of the duodenum present consistent with duodenitis. Appendix appears normal. There is a small amount of free intraperitoneal fluid. Vasculature no abdominal aortic aneurysm. Lymph nodes there are multiple nonspecific nonpathologic but prominent lymph nodes in the mesentery. There are no mesenteric lymph nodes of pathologic dimension. Retroperitoneal lymphadenopathy present measuring up to 1.2 cm. The urinary bladder is showing a slightly thickened wall consistent with incomplete distention chronic outflow obstruction likely. The prostate demonstrates mild nonspecific enlargement. Seminal vesicles are normal there is a compression deformity of lumbar 1 of undetermined NT daily. Cystic changes noted along the left acetabulum bilateral fat filled inguinal hernias noted. His lipase did come back elevated at 957. He is starting to shiver very badly. I will give him 1 dose of Motrin 600 mg by mouth as he just finished a dose of Tylenol within the last hour. 09/27/20 13:35 and has been given Dilaudid 0.5 mg IV for abdominal pain with Zofran 4 mg IV for nausea. I was able to speak with Dr. Fallon through the 1 call nurse at [facility] in [place] and the patient will be transferred to that facility per ground ambulance once a bed becomes available. Diagnosis is obstructed biliary tree of unclear etiology. Concern for mass in the head of the pancreas appreciated since no gallstones are evident within the gallbladder. Patient has been started on vancomycin 1.175 g intravenously and this will be followed by Flagyl 500 mg IV in route to [place] in the ambulance. Departure - Departure Time of Disposition: 15:48 Disposition: DC/Tfer to Acute Hospital 02 Condition: Serious Clinical Impression: Chronic lymphocytic leukemia, Acute febrile illness, Anemia, Thrombocytopenia, Elevated d-dimer, Obstruction of biliary tree Chronic renal insufficiency, stage III (moderate) Qualifiers: Chronic kidney disease stage 3 subtype: stage 3b (GFR 30-44) Qualified Code(s): N18.32 - Chronic kidney disease, stage 3b Pancreatitis Qualifiers: Pancreatitis type: biliary Acute pancreatitis complication: no infection or necrosis - Discharge Information *PRESCRIPTION DRUG MONITORING PROGRAM REVIEWED*: Not Applicable *COPY OF PRESCRIPTION DRUG MONITORING REPORT IN PATIENT GERMAINE: Not Applicable Referrals: Ed Mcgill MD [Primary Care Provider] - Forms: ED Department Discharge Additional Instructions: Patient to be transferred to [facility] in [place] for gastroenterology consultation and management of acute febrile illness felt to be secondary to biliary tree obstruction and possible developing ascending cholangitis. Patient is immunocompromised as he is receiving chemotherapy for chronic ascitic leukemia. He has an elevated D-dimer for which we could not do a CT pulmonary angiogram due to poor renal function. Associated febrile illness with chills Sepsis Event Note (ED) - Evaluation Sepsis Screening Result: No Definite Risk - Focused Exam Vital Signs: Vital Signs Temp Temp Temp Pulse Resp BP Pulse Ox 09/27/20 15:48 37.8 C 130 H 24 H 140/65 95 09/27/20 13:43 39.5 C H 09/27/20 13:33 39.5 C H 09/27/20 13:13 37.8 C 131 H 18 159/68 H 94 L 09/27/20 12:40 38.1 C 131 H 19 172/66 H 95 09/27/20 12:21 37.9 C 09/27/20 10:10 37.3 C 139 H 23 H 158/66 H 88 L - My Orders Last 24 Hours: My Active Orders 09/27/20 10:21 Blood Culture x2 Reflex Set [OM.PC] Stat 09/27/20 10:30 Dextrose 5%-0.9% NaCl [Dextrose 5%-Normal Saline] 1,000 ml IV ASDIRECTED 09/27/20 10:58 CULTURE BLOOD [BC] Stat 09/27/20 11:09 CULTURE BLOOD [BC] Stat 09/27/20 12:00 Dextrose 5%-0.9% NaCl [Dextrose 5%-Normal Saline] 1,000 ml IV ASDIRECTED - Assessment/Plan Last 24 Hours: My Active Orders 09/27/20 10:21 Blood Culture x2 Reflex Set [OM.PC] Stat 09/27/20 10:30 Dextrose 5%-0.9% NaCl [Dextrose 5%-Normal Saline] 1,000 ml IV ASDIRECTED 09/27/20 10:58 CULTURE BLOOD [BC] Stat 09/27/20 11:09 CULTURE BLOOD [BC] Stat 11/24/20 12:00 Dextrose 5%-0.9% NaCl [Dextrose 5%-Normal Saline] 1,000 ml IV ASDIRECTED
[2020-09-27] MEDS ORDERED: Acetaminophen 325 MG Tab PO ONE (11:01)
--- NOTE | 2020-09-27 11:17 | CR ---
PROCEDURE INFORMATION: Exam: XR Chest, 1 View Exam date and time: 09/27/2020 10:08 AM Age: 80 years old Clinical indication: Dyspnea TECHNIQUE: Imaging protocol: XR of the chest Views: 1 view. COMPARISON: CR Chest 1V Frontal 09/20/2020 3:10 PM FINDINGS: Lungs: Unremarkable. No consolidation. Pleural space: Unremarkable. No pleural effusion. No pneumothorax. Heart/Mediastinum: Unremarkable. No cardiomegaly. Bones/joints: Old right-sided rib fractures. IMPRESSION: No acute findings. Thank you for allowing us to participate in the care of your patient. Dictated and Authenticated by: Black Chance MD 09/27/2020 11:51 AM Central Time ([place] & [place]) TERELL
[2020-09-27] MEDS ORDERED: Cefepime 2 GM in Premix Bag 1 BAG IV ONE (11:53)
[2020-09-27] MEDS ORDERED: Magnesium Sulfate/Water 4 GM in Premix Bag 1 BAG IV ONE (11:54)
[2020-09-27] MEDS ORDERED: Dextrose 5%-0.9% NaCl 1,000 ML IV SCH (12:00)
[2020-09-27] MEDS ORDERED: Acetaminophen 325 MG Tab ONE (12:16)
[2020-09-27] MEDS ORDERED: Ibuprofen 600 MG Tab PO ONE (13:36)
[2020-09-27] MEDS ORDERED: Vancomycin 1.75 GM in Sodium Chloride 0.9% 500 ML IV ONE (13:36)
[2020-09-27] MEDS ORDERED: metroNIDAZOLE/Normal Saline 500 MG in Premix Bag 1 BAG IV ONE (13:40)
[2020-09-27] MEDS ORDERED: HYDROmorphone 0.5 MG/0.5 ML Syringe IVPUSH ONE (13:52)
[2020-09-27] MEDS ORDERED: Ondansetron 4 MG/2 ML SDV IVPUSH ONE (13:52)
--- NOTE | 2020-09-27 14:19 | CT ---
PROCEDURE INFORMATION: Exam: CT Chest Without Contrast; Diagnostic Exam date and time: 09/27/2020 12:10 PM Age: 80 years old Clinical indication: Patient HX: Confusion/fever, elevated liver enzymes and possible biliary tree obstruction. Cre level is elevated at 2.0 and therefore cannot take iv contrast TECHNIQUE: Imaging protocol: Diagnostic computed tomography of the chest without contrast. COMPARISON: CT Chest w Cont 07/23/2019 3:23 PM FINDINGS: Lungs: The lungs are hyperinflated, consistent with underlying small airways disease. Atelectatic changes noted within both lung bases without focal pneumonia. Pleural space: Trace right pleural effusion. Heart: There is mild atherosclerotic calcification of the coronary arteries. Aorta: Unremarkable. No aortic aneurysm. Lymph nodes: There is no evidence of mediastinal or hilar lymphadenopathy. No axillary lymphadenopathy. Bones/joints: Mild compression deformities of T7, T8 and T9 are present, ages are indeterminate. Soft tissues: Unremarkable. Other findings: Abdominal findings discussed separately. IMPRESSION: 1. The lungs are hyperinflated, consistent with underlying small airways disease. 2. Atelectatic changes noted within both lung bases without focal pneumonia. 3. Trace right pleural effusion. 4. Mild compression deformities of T7, T8 and T9 are present, ages are indeterminate. Thank you for allowing us to participate in the care of your patient. Dictated and Authenticated by: Albino Gillis DO 09/27/2020 2:18 PM Central Time ([place]) Addendum created by Albino Gillis DO on 09/27/2020 2:24 PM Central Time ([place] & [place]): THIS REPORT CONTAINS FINDINGS THAT MAY BE CRITICAL TO PATIENT CARE. The findings were verbally communicated via telephone conference at 2:24 PM [employer] SERVICE ASSOCIATE on 09/27/2020 with SB QUIJANO. The findings were acknowledged and understood. Initial Report created on 09/27/2020 2:24 PM Central Time ([place] & [place]): PROCEDURE INFORMATION: Exam: CT Abdomen And Pelvis Without Contrast Exam date and time: 09/27/2020 12:10 PM Age: 80 years old Clinical indication: Patient HX: Confusion/fever, elevated liver enzymes and possible biliary tree obstruction. Cre level is elevated at 2.0 and therefore cannot take iv contrast TECHNIQUE: Imaging protocol: Computed tomography of the abdomen and pelvis without contrast. COMPARISON: No relevant prior studies available. FINDINGS: Lungs: Lung findings discussed separately. Mediastinal space: A small hiatal hernia is present. Liver: Mild hepatomegaly. Gallbladder and bile ducts: Gallbladder is contracted without evidence of calcifications as imaged. Pancreas: Peripancreatic fat stranding and pancreatic ductal dilatation noted. Findings are consistent with acute pancreatitis. Spleen: Mild splenomegaly. Adrenal glands: Normal. No mass. Kidneys and ureters: 3.2 cm cystic lesion noted on the left kidney. The right kidney is normal. Stomach and bowel: Thickening of the harmon of the duodenum present consistent with duodenitis. A large amount of stool is noted throughout the colon. Appendix: No evidence of appendicitis. Intraperitoneal space: There is a small amount of free intraperitoneal fluid present. Vasculature: Unremarkable. No abdominal aortic aneurysm. Lymph nodes: There are multiple nonspecific nonpathologic but prominent lymph nodes in the mesentery. There are no mesenteric lymph nodes of pathologic dimensions. Retroperitoneal lymphadenopathy present measuring up to 1.2 cm. Urinary bladder: There is mild bladder wall thickening consistent with incomplete distension, chronic outflow obstruction, or cystitis. Reproductive: The prostate demonstrates mild nonspecific enlargement. The seminal vesicles are normal. Bones/joints: Compression deformity of L1 is present, age is indeterminate. Cystic changes noted along the left acetabulum. Soft tissues: Bilateral fat filled inguinal hernias. IMPRESSION: 1. Peripancreatic fat stranding and pancreatic ductal dilatation noted. Findings are consistent with acute pancreatitis. Underlying pancreatic mass cannot be excluded. Short-term follow-up is recommended. 2. Thickening of the harmon of the duodenum present consistent with duodenitis. 3. Gallbladder is contracted without evidence of calcifications as imaged. 4. Mild hepatomegaly. 5. Mild splenomegaly. 6. Retroperitoneal lymphadenopathy present measuring up to 1.2 cm. 7. There is a small amount of free intraperitoneal fluid present. 8. A large amount of stool is noted throughout the colon. COMMENTS: Consistent with the [employer]'s Incidental Findings Committee white paper (J Am Kelby Radiol 2018): Any incidental renal lesion less than 1 cm or classified as too small to characterize, or any incidental cystic renal lesion characterized as simple-appearing, is likely benign. No follow-up imaging is recommended for these lesions per consensus recommendations based on imaging criteria. Thank you for allowing us to participate in the care of your patient. Dictated and Authenticated by: Albino Gillis DO 09/27/2020 2:24 PM Central Time ([place] & [place]) [facility]
== END 2020-09-27 15:45 ==
LOC: JD.ED 09:59
DX: K85.10 Biliary acute pancreatitis without necrosis or infection (principal); C91.10 Chronic lymphocytic leukemia of B-cell type not having achieved remission; R79.1 Abnormal coagulation profile; K83.1 Obstruction of bile duct; D69.6 Thrombocytopenia, unspecified; I12.9 Hypertensive chronic kidney disease with stage 1 through stage 4 chronic kidney disease, or unspecified chronic kidney disease; J44.9 Chronic obstructive pulmonary disease, unspecified; N18.32 Chronic kidney disease, stage 3b; K21.9 Gastro-esophageal reflux disease without esophagitis; I25.2 Old myocardial infarction; M19.90 Unspecified osteoarthritis, unspecified site; Z86.73 Personal history of transient ischemic attack (TIA), and cerebral infarction without residual deficits; F41.9 Anxiety disorder, unspecified; F32.9 Major depressive disorder, single episode, unspecified; E03.9 Hypothyroidism, unspecified; Z88.0 Allergy status to penicillin; Z88.1 Allergy status to other antibiotic agents; Z88.2 Allergy status to sulfonamides; Z79.82 Long term (current) use of aspirin; Z79.899 Other long term (current) drug therapy; Z20.828 Contact with and (suspected) exposure to other viral communicable diseases
CPT/HCPCS: 36415; 71045; 71250; 74176; 80053; 81001; 82553; 82728; 82977; 83605; 83615; 83690; 83735; 83880; 84484; 85007; 85027; 85379; 85610; 85652; 85730; 86140; 87040; 93005; 96365; 96366; 96367; 96368; 96375; 99285; A9270; J0692; J1170; J2405; J3370; J3475; J3490; J7040; J7042; U0002